=== PATIENT | female | born 1950 | race Caucasian/White ===

== ENCOUNTER 2022-06-29 09:00 | Outpatient (RCR) | payer MEDICARE, BC, SELFPAY ==
--- NOTE | 2022-04-17 11:55 | PT.OPEX ---
PT [facility] Eval PT [facility] Outpatient Eval Start: 04/17/22 07:13 Freq: Status: Active Protocol: Document 04/17/22 07:13 JAZMIN (Rec: 04/17/22 10:14 JAZMIN [id number]) E-Signed By Massiel Merino, PT Physical Therapy Outpatient Evaluation Insurance Information Recert Due Date 07/10/22 Insurance Name Medicare B,Other; See Comments Insurance Information/Comments [employer] [place] Medical Diagnosis B knee and hip pain Treating Diagnosis B knee pain, B hip pain, limited B hip ROM, impaired balance, impaired proximal hip strength, impaired quad strength, impaired gait Referring MD Young Subjective Subjective Patient presents to PT with primary complaint of chronic B hip and knee pain with initial onset about 2 years with gradual onset. She notes pain is mainly lateral R hip and down to lateral R knee however L LE is painful as well. She feels weak and unsure how to strengthening knees/hips. Exercises at home at this time focus on upper body strengthening. Has had previous injections in knees which have helped. Has done some biking on her [employer] but not very consistent with use. She is able to walk about 20 minutes prior to pain exacerbation. Having difficulty getting in/out of the car, in/out of shower, squatting, sleeping through the night, donning/doffing shoes and socks. She denies any recent falls d/t condition . Goals are to improve pain with walking, standing, and functional activities listed above as well as generalized LE strength. 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) Pain Comments 6/10 worst R 4/10 worst L Date of Last Physician Visit 03/02/22 Current Work Status Retired Precautions Treatment Precautions/Contraindications Frontal lobe seizures: treated with Lorazepam Objective Other/Pertinent Objective Gait: upright posture, limited terminal hip extension B SL balance: -L 12 sec, no pain and neutral pelvis -R 7 sec, lateral R hip pain with trendelenburg stance LE ROM (R/L): -Hip Ext: 5/5 -Hip Flx: 115/115-end range restriction however denies pinching -Hip ER: 45/45 -Hip IR: 15/15 -Knee Flx: 122/125 -Knee Ext: 0/0 LE Strength (R/L): -Knee Ext: R: 4/5, L: 4/5 -Knee Flex: R: 5/5, L: 5/5 -Hip Abd: R: 3+/5, L: 4-/5 -Hip Ext: R: 3+/5, L: 4-/5 -Hip Flx: R: 4/5, L: 4/5 Patellar mobility and positioning -R hypomobile medial -L good mobility patellar tilt Chet test: -R + -L - Increased tone R TFL/ITB Functional Test Performed & Score LEFS: 50/80 Assessment Assessment/Impression Patient is a 71 year old female presenting to physical therapy for evaluation and treatment of B hip and knee pain. Patient presents with B knee pain, B hip pain, limited B hip ROM, impaired balance, impaired proximal hip strength , impaired quad strength, impaired gait. These impairments are limiting the patients ability to getting in /out of the car, in/out of shower, squatting, sleeping through the night, donning/ doffing shoes and socks, walking >20 minutes. Patient appears motivated to participate in PT and presents with good prognosis to improve mobility, strength, proprioception and return to functional activities with skilled physical therapy intervention. Primary Functional Limitations getting in/out of the car, in/ out of shower, squatting, sleeping through the night, donning/doffing shoes and socks, walking >20 minutes Plan of Care Rehabilitation Potential Good Physical Therapy Goals In 6 weeks (05/29/22) Patient will demonstrate full PROM B hips without end range pain/pinch in order to don/ doff socks and shoes. Patient is able to sleep with waking 0-1 times per week due to pain. Patient will demonstrate desired glut and TA activation without cuing in order to progress to more functional activities, such as squats Pt will be able to walk >30 minutes with <4/10 pain In 12 weeks (07/10/22) Pt will exhibit 9 pt improvement in LEFS Outcome measure to demonstrate functional improvement and progress towards goals. Pt will be able to walk >45 minutes with <2/10 pain Pt will report <2/10 hip and knee pain with ADLs including getting in/out of car and shower Treatment Plan/Direct Interventions Gait Training,Ice/Cold/ Vasopneumatic,Joint Mobilization,Manual Therapy, Neuromuscular Re-ed,Self-Care/ Home Management,Therapeutic Activities,Therapeutic Exercises Frequency/Duration 1x/wk for 6 weeks with additional 4 session prn based on progress Patient Will Be Discharged From Therapy Completion of LTG(s), Independent w/HEP, Independently Progressing Evaluation Billing Untimed Code Treatment Minutes 24 Complexity Low Certification Information Initial Certification Date 04/17/22 Ending Certification Date 07/10/22
== END 2022-06-29 09:59 | disposition home or self-care (01) ==
PROVIDERS: PCP Family Medicine; Visit Provider Family Medicine
DX: M25.561 Pain in right knee (principal); Z51.89 Encounter for other specified aftercare
CPT/HCPCS: 97110; 97161

== ENCOUNTER 2022-07-09 18:51 | Emergency (ER) | payer MEDICARE, BC, SELFPAY ==
[2022-07-09 19:10] VITALS: BP 137/91; PULSE 74; RESP 18; TEMP 36.3; O2SAT 99; BMI 27.3
--- NOTE | 2022-07-09 19:45 | ED_ITS ---
HPI - General Adult General Chief complaint: Skin/Abscess/Foreign Body Stated complaint: RASH SPREADING FROM ARMPITS DOWN THROUGH LEGS Time Seen by Provider: 07/09/22 19:26 History of Present Illness HPI narrative: This patient comes in with a generalized pruritic maculopapular rash. She states that these symptoms have been present since mid afternoon today, about 6 hours ago. She is not on any new medicines but states that her lamotrigine was increased from 100 mg twice daily to 150 mg twice daily. She does not know of any other exposures. She does not report any symptoms of anaphylaxis or angioedema. Related Data Home Medications Medication Instructions Recorded Confirmed lamotrigine 100 mg tablet 150 mg PO BID 06/07/22 07/09/22 levetiracetam 500 mg 500 mg PO QDAY 06/07/22 07/09/22 tablet,extended release 24 hr omeprazole 20 mg capsule,delayed 20 mg PO QDAY 06/07/22 07/09/22 release Previous Rx's Medication Instructions Recorded lorazepam 0.5 mg tablet 0.5 mg PO QID #120 tabs 06/19/22 methylprednisolone 4 mg tablets in See Rx Instructions PO .COMPLEX 07/09/22 a dose pack (Medrol (Ari)) #21 ea triamcinolone acetonide 0.1 % 1 applic topical BID #80 grams 07/09/22 topical cream Allergies Allergy/AdvReac Type Severity Reaction Status Date / Time amoxicillin [From Augmentin] Allergy Mild Unknown Verified 06/07/22 14:43 clavulanic acid Allergy Mild Unknown Verified 06/07/22 14:43 [From Augmentin] Review of Systems Status of ROS: Reports: 10 or more systems reviewed and unremarkable except as noted in History and below Narrative: Constitutional: No fevers, no weight gain or loss. Eyes: No discharge. No vision changes. HENT: No congestion, no sore throat, no ear pain. Cardiovascular: No chest pain, no palpitations. Respiratory: No shortness of breath, no wheezes, no cough. Gastrointestinal: No abdominal pain, no vomiting, no diarrhea. Genitourinary: No dysuria, no hematuria. Musculoskeletal: Normal range of motion. Skin: Generalized maculopapular rash on trunk and extremities with pruritus. Neurological: No dizziness, weakness, sensory change, speech change. Endo/Heme/Allergies: No bruising or bleeding. No polydipsia. Pysch: no suicidality, no anxiety, no insomnia. All other systems reviewed and are negative. [facility] Medical History (Updated 07/09/22 @ 19:50 by Rommel Avery MD) Chronic gastritis Focal seizure (2018) Gastroesophageal reflux disease (03/24/10) Night terrors, adult Olfactory hallucinations Polyp of colon Vasomotor rhinitis (04/07/13) Surgical History (Updated 06/07/22 @ 07:07 by Rosie Young MD) H/O hand surgery (~2014) History of cholecystectomy (2000) History of colonoscopy (2018) History of hysterectomy (1980) Family History (Updated 06/07/22 @ 07:09 by Rosie Young MD) Mother Stroke, Onset Age: 90 Son Diabetes Father Colon cancer, Onset Age: 62 Social History (Updated 06/07/22 @ 07:09 by Rosie Young MD) Narrative: 2 Children 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 HEENT: Normocephalic, atraumatic. Neck: Normal range of motion. Nontender. Supple. Heart: Regular. No murmurs. Normal rate. Intact distal pulses. Lungs: Clear to auscultation. No chest discomfort. No wheezes, rhonchi, or rales. Abdomen: Normal bowel sounds. Nontender. No rebound tenderness. Genitalia: Deferred. Back: No midline tenderness. Normal range of motion. Extremities: Normal range of motion. No injury. Skin: Intact Warm. No erythema or pallor. Maculopapular rash on all extremities and the trunk. Neurologic: No altered sensation. No weakness. Alert and oriented. Psychiatric: No suicidality. No anxiety or depression. No insomnia. Nursing notes and vitals signs are reviewed. Const: Vital Signs, click to edit/add: Vital Signs - 24 hr 07/09/22 19:10 Temperature 97.4 F L Pulse Rate [Right Pulse Oximeter] 74 Respiratory Rate 18 Blood Pressure [Ri ght Upper Arm] 137/91 H Pulse Oximetry 99 Oxygen Delivery Me thod Room Air Course Vital Signs Vital signs: Initial Vital Signs Temperature 97.4 F L 07/09/22 19:10 Temperature Source Temporal Artery Scan 07/09/22 19:10 Pulse Rate 74 07/09/22 19:10 Respiratory Rate 18 07/09/22 19:10 Blood Pressure 137/91 H 07/09/22 19:10 Blood Pressure Mean 106 07/09/22 19:10 Blood Pressure Position Sitting 07/09/22 19:10 Pulse Oximetry 99 07/09/22 19:10 Oxygen Delivery Method 07/09/22 19:10 Vital Signs Temperature 97.4 F L 07/09/22 19:10 Pulse Rate 74 07/09/22 19:10 Respiratory Rate 18 07/09/22 19:10 Blood Pressure 137/91 H 07/09/22 19:10 Pulse Oximetry 99 07/09/22 19:10 Oxygen Delivery Method 07/09/22 19:10 Temperature 97.4 F L 07/09/22 19:10 Pulse Rate 74 07/09/22 19:10 Respiratory Rate 18 07/09/22 19:10 Blood Pressure 137/91 H 07/09/22 19:10 Pulse Oximetry 99 07/09/22 19:10 Oxygen Delivery Method 07/09/22 19:10 Medical Decision Making MDM Narrative Medical decision making narrative: It is uncertain what the specific trigger is for this generalized rash. It seems unlikely that it is medication related as she has been taking lamotrigine for about 6 months and had an increase in the dose only about a week ago. Perhaps if it was a new prescription from a different senior java software engineer there could be some allergen in the binder of the medicine that is triggering her symptoms. In any event she is not showing signs of angioedema or anaphylaxis. She did receive an oral dose of dexamethasone 10 mg. I provided prescriptions for Medrol Dosepak and triamcinolone cream. I advised her to use Kate a also for further benefit. Instructed her to contact her primary physician for recommendations regarding her regular medicines. Discharge Plan Discharge Clinical Impression: Urticaria Patient Disposition: Home, Self-Care Condition: Unchanged Additional Instructions: Take medication as prescribed. Use Kate as directed also. Follow up with MD for ongoing medication management. Return if worsening. Prescriptions: New methylprednisolone [Medrol (Ari)] 4 mg tablets,dose pack See Rx Instructions .ROUTE .COMPLEX Qty: 21 0RF Rx Instructions: orally per package directions triamcinolone acetonide 0.1 % cream 1 applic topical BID Qty: 80 0RF No Action lamotrigine 100 mg tablet 150 mg PO BID Label Comments: TAKE 1 TABLET TWICE DAILY AFTER COMPLETING 25 MG RX omeprazole 20 mg capsule,delayed release(DR/EC) 20 mg PO QDAY Label Comments: TAKE 1 CAPSULE BY MOUTH DAILY levetiracetam 500 mg tablet extended release 24 hr 500 mg PO QDAY Label Comments: TAKE 4 TABLETS BY MOUTH DAILY lorazepam 0.5 mg tablet 0.5 mg PO QID Qty: 120 0RF Follow Up/Referrals: Rosie Young MD [Primary Care Provider] - Stand Alone Forms: [email or web address] Info Instructions
[2022-07-09] MEDS: dexAMETHasone 10 MG/ML inj PO (20:01)
[2022-07-09 20:37] VITALS: BP 137/91; PULSE 74; RESP 18; TEMP 36.3
== END 2022-07-09 20:10 | disposition home or self-care (01) ==
PROVIDERS: Emergency Provider Emergency Medicine Emergency Medical Services; PCP Family Medicine
DX: L50.9 Urticaria, unspecified (principal)
CPT/HCPCS: 99283; 99284; J1100

== ENCOUNTER 2022-10-15 14:23 | Outpatient (CLI) | payer MEDICARE, BC, SELFPAY | END 2022-10-15 14:24 | disposition home or self-care (01) | LOC: AMB 10-17 09:45 | PROVIDERS: PCP Family Medicine; Visit Provider Emergency Medicine | DX: G40.909 Epilepsy, unspecified, not intractable, without status epilepticus (principal) | CPT/HCPCS: A0425; A0427 ==

== ENCOUNTER 2022-10-15 14:55 | Emergency (ER) | payer MEDICARE, BC, SELFPAY ==
[2022-10-15 14:57] VITALS: BP 143/71; PULSE 77; RESP 20; TEMP 36.9; O2SAT 99
--- NOTE | 2022-10-15 15:08 | ED_ITS ---
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 Patient notes that the chlorine from swimming this morning seemed to spark on ongoing seizure. Patient notes that she is still experiencing waves of smelling the chlorine long after she departed the swimming pool. She notes that she had gone home and in addition to her normal lorazepam dosing of 0.5 mg q.i.d. she also took an additional 1.5 mg. This was done in 0.5 mg dosages. Unfortunately patient continue leave feels the waves coming over her. She was afraid to stay at home as she was alone and because of the anxiety that this causes her and came to the emergency room. The patient notes that recently they increased her to look os amide or Vimpat and decreased her Keppra. She would like to get off the Keppra because she states she feels like it makes her worse. She is a patient at [facility]. She denies any recent head trauma but states 3 years ago had head trauma and this is why she is experiencing the seizures. She notes that she has had an EEG at [facility] that showed seizures. I do query her on Ativan scheduled as this is usually not used as a seizure preventative and she states that she initially started on it as a p.r.n. medication but now takes it scheduled and states that she does much worse if she is not on it. Related Data Home Medications Medication Instructions Recorded Confirmed levetiracetam 500 mg 500 mg PO QDAY 06/07/22 10/15/22 tablet,extended release 24 hr omeprazole 20 mg capsule,delayed 20 mg PO QDAY 06/07/22 10/15/22 release lacosamide 50 mg tablet 50 mg PO BID 10/15/22 10/15/22 Previous Rx's Medication Instructions Recorded lorazepam 0.5 mg tablet 0.5 mg PO QID #120 tabs 06/19/22 Allergies Allergy/AdvReac Type Severity Reaction Status Date / Time amoxicillin [From Augmentin] Allergy Mild Unknown Verified 10/15/22 15:04 clavulanic acid Allergy Mild Unknown Verified 10/15/22 15:04 [From Augmentin] lamotrigine Allergy Mild Rash Verified 10/15/22 15:04 prednisone Allergy Mild Rash Verified 10/15/22 15:04 Review of Systems Status of ROS: Reports: 10 or more systems reviewed and unremarkable except as noted in History and below Const: Denies: fever or chills Eyes: Denies: change in vision ENMT: Denies: throat pain Cardio: Denies: chest pain Resp: Denies: cough PFSH PFSH Medical History Chronic gastritis Focal seizure (2018) Gastroesophageal reflux disease (03/24/10) Night terrors, adult Olfactory hallucinations Polyp of colon Vasomotor rhinitis (04/07/13) Surgical History H/O hand surgery (~2014) History of cholecystectomy (2000) History of colonoscopy (2018) History of hysterectomy (1980) Family History Mother Stroke, Onset Age: 90 Son Diabetes Father Colon cancer, Onset Age: 62 Social History Narrative: 2 Children 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 Able to provide in significant detail her current medical condition. Eyes are clear and EOM is full. No facial swelling. Oral cavity with moist mucous membranes. Neck is supple. No lymphadenopathy. Heart with regular rate and rhythm and lungs are clear bilaterally. Abdomen soft. Lower extremities without rash or unusual edema. Const: Vital Signs, click to edit/add: Vital Signs - 24 hr 10/15/22 14:57 10/15/22 15:31 Temperature 98.4 F Pulse Rate [Right Pulse Oximeter] 77 82 Respiratory Rate 20 14 Blood Pressure [Le ft Upper Arm] 143/71 H 143/71 H Pulse Oximetry 99 98 Oxygen Delivery Me thod Room Air Room Air Documenting provider has reviewed patient's vital signs: yes Course Course Hospital Course: Patient noted to be holding a Kleenex to her nose for extended periods. Was able to get her a nose clamp typically used for epistaxis in the its this seemed to help as well. I did speak with [facility] in regards to this patient and it was suggested at that time to give patient 3 g IV bolus of Keppra and not use benzodiazepines as treatment for the seizure. Patient was very upset about this and states that she has been trying to get off Keppra and thus I did call once again and was able to speak to the epilepsy department at [facility]. Dr. Logan has seen the patient in the past. He notes that we will need to increase Keppra to 500 mg t.i.d. which she takes at night in 2 hour increments. He also suggested increasing Lacosamide my to 150 mg b.i.d. for a total of 300 mg. Patient had previously been on 100 mg-50 mg-100 mg. She is also requesting her Ativan 0.5 mg which she should have had at 1600 hours. Vital Signs Vital signs: Initial Vital Signs Temperature 98.4 F 10/15/22 14:57 Temperature Source Temporal Artery Scan 10/15/22 14:57 Pulse Rate 77 10/15/22 14:57 Pulse Rhythm 10/15/22 14:57 Respiratory Rate 20 10/15/22 14:57 Blood Pressure 143/71 H 10/15/22 14:57 Blood Pressure Mean 95 10/15/22 14:57 Blood Pressure Position Supine 10/15/22 14:57 Pulse Oximetry 99 10/15/22 14:57 Oxygen Delivery Method 10/15/22 14:57 Vital Signs Temperature 98.4 F 10/15/22 14:57 Pulse Rate 77 10/15/22 14:57 Respiratory Rate 20 10/15/22 14:57 Blood Pressure 143/71 H 10/15/22 14:57 Pulse Oximetry 99 10/15/22 14:57 Oxygen Delivery Method 10/15/22 14:57 Temperature 98.4 F 10/15/22 14:57 Pulse Rate 82 10/15/22 15:31 Respiratory Rate 14 10/15/22 15:31 Blood Pressure 143/71 H 10/15/22 15:31 Pulse Oximetry 98 10/15/22 15:31 Oxygen Delivery Method 10/15/22 15:31 MDM - Seizure MDM Narrative Medical decision making narrative: 1.Olfactory seizure- patient noted to have taken an additional 1.5 mg of Ativan at home but had ongoing seizure and did not want to be home alone because of increased anxiety. We did discuss with [facility] course of action which did include Keppra bolus and patient was not pleased with that. Thus I was able to talk to epilepsy specialist who noted that we should increase Keppra to 500 mg t.i.d. (from 500 mg b.i.d.) and Vimpat to 150 mg b.i.d. (current dosing is 100 mg, 50 mg, 100 mg during the course of an evening) The plan had to been to give Vimpat 150 mg now and for patient to continue 150 mg b.i.d. starting tomorrow. She, however, while initially agreeing decided against it once nursing staff arrived with medications. She notes that she has been taking that medication at home at night. She has been dividing it up over approximately 2 hour increments. At this time she states she is feeling better and if she wants to take this medication at home I do not have a problem with that. The plan is for her to increase her Vimpat and temporarily increase her Keppra to 500 mg t.i.d. or 1500 mg this evening. Ultimately, she is to follow up with [facility] so that they can start decreasing her Keppra. In the end patient only received Ativan 0.5 mg p.o. at her 1600 hours dosing. I did talk to her about this as she had previously had Ativan in but she was stating that she must take this on time or she will get much worse. She is alert and oriented and thus we did give her 1 dose. 2. Anxiety-I did speak with patient about psychological affects of chronic medical problems. I do think that there is significant anxiety at play and trying to discern symptoms of anxiety verses sequela of seizure is very challenging. Patient states that she has good psychological support from her her sister. Later she does tell me that her neurologist Dr. Choe had indicated the possibility of psychiatric consult if they are unable to get these seizures under control. I have significant concerns about the Ativan being used in this particular manner to manage seizures. I do think it would be important to taper off the Ativan. I do think this is going to take a specialist and very slow taper however. 3. Disposition-patient now is able to go home. She thinks she is feeling better. Her was in [place] but is now coming back from that area and will be able to pick her up. She will not be home alone. She is to return to the emergency room as needed. Medical Records Attestation: I reviewed the patient's medical records. Discharge Plan Discharge Clinical Impression: Olfactory seizure Patient Disposition: Home, Self-Care Condition: Improved Additional Instructions: Increase Keppra to 500 mg 3 times daily or 1500 mg in 24 hours. This was your previous does which was recently decreased. [facility] will need to assist you with decreasing this dose once again in the future. Increase Lacosamide to 150 mg twice daily for a total of 300 mg in 24 hours. Follow-up with [facility]. Return to the emergency room as needed. Prescriptions: No Action omeprazole 20 mg capsule,delayed release(DR/EC) 20 mg PO QDAY Label Comments: TAKE 1 CAPSULE BY MOUTH DAILY levetiracetam 500 mg tablet extended release 24 hr 500 mg PO QDAY Label Comments: TAKE 4 TABLETS BY MOUTH DAILY lacosamide 50 mg tablet 50 mg PO BID lorazepam 0.5 mg tablet 0.5 mg PO QID Qty: 120 0RF Follow Up/Referrals: Rosie Young MD [Primary Care Provider] - Stand Alone Forms: [employer] Info Instructions
[2022-10-15 15:31] VITALS: BP 143/71; PULSE 82; RESP 14; O2SAT 98
[2022-10-15] MEDS: LORazepam 0.5 MG TABLET PO (17:20)
--- NOTE | 2022-10-15 17:33 | ED.NURSE ---
Patient manages medications at home. [place] was consulted by Physician for best management; ultimately Lacosamide and Lorazepam ordered. Pt refused administration of Lacosamide that pharmacy had sent but accepted Lorazepam.
== END 2022-10-15 17:47 | disposition home or self-care (01) ==
PROVIDERS: Emergency Provider Family Medicine; PCP Family Medicine
DX: G40.89 Other seizures (principal)
CPT/HCPCS: 94761; 99283; 99284; A9270

== ENCOUNTER 2022-11-19 13:35 | Emergency (ER) | payer MEDICARE, BC, SELFPAY ==
[2022-11-19 13:46] VITALS: BP 105/65; PULSE 88; RESP 18; TEMP 36.8; O2SAT 96; BMI 25.5
[2022-11-19 15:38] VITALS: BP 133/60; PULSE 76; RESP 16; TEMP 36.8; O2SAT 96
[2022-11-19] MEDS: LORazepam 1 MG TABLET PO (15:50)
[2022-11-19 16:34] VITALS: BP 129/46; PULSE 78; RESP 16; O2SAT 96
--- NOTE | 2022-11-19 16:37 | ED.GENADULT ---
HPI - General Adult General Chief complaint: Seizure Stated complaint: Seizure Time Seen by Provider: 11/19/22 15:20 History of Present Illness HPI narrative: This 71-year-old female comes in with report of partial seizures. She has a history of this and states that it is a wave that comes over her during which time she has altered some sense of smell and taste. She does not report tonic clonic activity or partial tremors. She is taking Keppra 1500 mg in the evening. She is also taking lacosamide and Ativan. She did take an extra 1500 mg of Keppra this morning and arrives here with improvement of her symptoms. She does arrive with normal vital signs and is not showing any sign of seizure activity. She has been evaluated and is being managed by a neurologist. She has had CT scan and MRI and lab test done without any real findings to verify her symptoms. She feels that the lacosamide is causing some adverse effects as the dosing was increased recently. She is connected with her neurologist in this regard who is weaning her off of this medicine and starting Depakote. Related Data Home Medications Medication Instructions Recorded Confirmed levetiracetam 500 mg 500 mg PO QDAY 06/07/22 11/19/22 tablet,extended release 24 hr omeprazole 20 mg capsule,delayed 20 mg PO QDAY 06/07/22 11/19/22 release lacosamide 50 mg tablet 50 mg PO BID 10/15/22 11/19/22 Previous Rx's Medication Instructions Recorded lorazepam 0.5 mg tablet 0.5 mg PO QID #120 tabs 06/19/22 Allergies Allergy/AdvReac Type Severity Reaction Status Date / Time amoxicillin [From Augmentin] Allergy Mild Unknown Verified 10/15/22 15:04 clavulanic acid Allergy Mild Unknown Verified 10/15/22 15:04 [From Augmentin] lamotrigine Allergy Mild Rash Verified 10/15/22 15:04 prednisone Allergy Mild Rash Verified 10/15/22 15:04 Review of Systems Status of ROS: Reports: 10 or more systems reviewed and unremarkable except as noted in History and below Narrative: Constitutional: No fevers, no weight gain or loss. Eyes: No discharge. No vision changes. HENT: No congestion, no sore throat, no ear pain. Cardiovascular: No chest pain, no palpitations. Respiratory: No shortness of breath, no wheezes, no cough. Gastrointestinal: No abdominal pain, no vomiting, no diarrhea. Genitourinary: No dysuria, no hematuria. Musculoskeletal: Normal range of motion. Skin: No rashes, no pruritis. Neurological: No dizziness, weakness, speech change. She reports episodes of olfactory and taste changes. Endo/Heme/Allergies: No bruising or bleeding. No polydipsia. Pysch: no suicidality, no anxiety, no insomnia. All other systems reviewed and are negative. [facility] Medical History Chronic gastritis Focal seizure (2019) Gastroesophageal reflux disease (03/24/10) Night terrors, adult Olfactory hallucinations Polyp of colon Vasomotor rhinitis (04/07/13) Surgical History H/O hand surgery (~2014) History of cholecystectomy (2000) History of colonoscopy (2018) History of hysterectomy (1980) Family History Mother Stroke, Onset Age: 90 Son Diabetes Father Colon cancer, Onset Age: 62 Social History Narrative: 2 Children Retiree: researcher from [place] Non-smoker Exercises regularly -pushups, walking, biking Social drinker 1/day Smoking Status: Never smoker Do you use any of these nicotine containing products: None Second hand tobacco smoke exposure: No How often do you have a drink containing alcohol: never AUDIT-C Alcohol total score: 0 Non-prescribed substance use: denies use service: No Exam Narrative: Exam Narrative: Constitutional: Well-developed, well-nourished, no acute distress. HEENT: Normocephalic, atraumatic. Neck: Normal range of motion. Nontender. Supple. Heart: Regular. No murmurs. Normal rate. Intact distal pulses. Lungs: Clear to auscultation. No chest discomfort. No wheezes, rhonchi, or rales. Abdomen: Normal bowel sounds. Nontender. No rebound tenderness. Genitalia: Deferred. Back: No midline tenderness. Normal range of motion. Extremities: Normal range of motion. No injury. Skin: Intact. No rash. Warm. No erythema or pallor. Neurologic: No altered sensation. No weakness. Alert and oriented. Psychiatric: No suicidality. No anxiety or depression. No insomnia. Nursing notes and vitals signs are reviewed. Const: Vital Signs, click to edit/add: Vital Signs - 24 hr 11/19/22 13:46 11/19/22 15:38 11/19/22 16:34 Temperature 98.2 F 98.2 F Pulse Rate [Pulse Oximeter] 88 76 78 Respiratory Rate 18 16 16 [facility] 105/65 133/60 129/46 L Pulse Oximetry 96 96 96 Oxygen Delivery Me thod Room Air Room Air Room Air Course Vital Signs Vital signs: Initial Vital Signs Temperature 98.2 F 11/19/22 13:46 Temperature Source Temporal Artery Scan 11/19/22 13:46 Pulse Rate 88 11/19/22 13:46 Respiratory Rate 18 11/19/22 13:46 Blood Pressure 105/65 11/19/22 13:46 Blood Pressure Mean 78 11/19/22 13:46 Pulse Oximetry 96 11/19/22 13:46 Oxygen Delivery Method 11/19/22 13:46 Vital Signs Temperature 98.2 F 11/19/22 13:46 Pulse Rate 88 11/19/22 13:46 Respiratory Rate 18 11/19/22 13:46 Blood Pressure 105/65 11/19/22 13:46 Pulse Oximetry 96 11/19/22 13:46 Oxygen Delivery Method 11/19/22 13:46 Temperature 98.2 F 11/19/22 15:38 Pulse Rate 78 11/19/22 16:34 Respiratory Rate 16 11/19/22 16:34 Blood Pressure 129/46 L 11/19/22 16:34 Pulse Oximetry 96 11/19/22 16:34 Oxygen Delivery Method 11/19/22 16:34 Medical Decision Making MDM Narrative Medical decision making narrative: This patient comes in reporting recurrent history of which she calls seizures. It is episodes of feeling a wave of discomfort and change in her sense of smell and taste. She does not report any involuntary movements typical of a partial seizure. She did take extra medicine prior to arrival and seems to improved. She did receive an oral dose of Ativan 1 mg here. She was observed for a couple hours and continues to feel normal. She is okay to be discharged home and I encouraged continuing the plan as outlined by her primary physician. Discharge Plan Discharge Clinical Impression: Olfactory hallucinations Patient Disposition: Home, Self-Care Condition: Improved Additional Instructions: Continue current plans. Okay to take extra Keppra and Ativan as discussed and needed for recurrent symptoms or breakthrough symptoms. Prescriptions: No Action omeprazole 20 mg capsule,delayed release(DR/EC) 20 mg PO QDAY Label Comments: TAKE 1 CAPSULE BY MOUTH DAILY levetiracetam 500 mg tablet extended release 24 hr 500 mg PO QDAY Label Comments: TAKE 4 TABLETS BY MOUTH DAILY lacosamide 50 mg tablet 50 mg PO BID lorazepam 0.5 mg tablet 0.5 mg PO QID Qty: 120 0RF Follow Up/Referrals: Rosie Young MD [Primary Care Provider] - Stand Alone Forms: [employer] Info Instructions
[2022-11-19 17:00] VITALS: BP 113/73; PULSE 78; RESP 16; TEMP 36.7; O2SAT 92
--- NOTE | 2022-11-19 17:14 | PC.NURSE ---
discharge pt was pleasant. is loving and caring. all meds list are printed out. she got 1 mg po ativan. she was discharge. all questions answered. she got a w/c ride to car.
[2022-11-19 17:15] VITALS: BP 113/76; PULSE 78; PULSE 92; RESP 16; TEMP 36.7
== END 2022-11-19 17:10 | disposition home or self-care (01) ==
PROVIDERS: Emergency Provider Emergency Medicine Emergency Medical Services; PCP Family Medicine
DX: R44.2 Other hallucinations (principal)
CPT/HCPCS: 99283; 99284; A9270

== ENCOUNTER 2022-12-12 11:28 | Outpatient (CLI) | payer MEDICARE, BC, SELFPAY ==
[2022-12-12] MEDS: TETRACAINE 0.5% OPHTH 1 DROP EYE-BOTH ×3 (11:43→12:04)
[2022-12-12] MEDS: BRIMONIDINE TARTRATE 0.2% OPHTH 1 DROP EYE-BOTH ×2 (11:46→12:23)
[2022-12-12 11:55] VITALS: BP 95/52; PULSE 60; RESP 18; O2SAT 98
--- NOTE | 2022-12-12 12:53 | P.OPTPRC_ITS ---
Procedure Note Date of procedure: 12/12/22 Will [facility] bill your pro fee for this procedure?: Yes Procedure Description: SURGEON: Mirella Hill MD PREOPERATIVE DIAGNOSIS: Posterior capsular opacity, right and left eye POSTOPERATIVE DIAGNOSIS: Posterior capsular opacity, right and left eye PROCEDURE: YAG laser capsulotomy, both eyes ANESTHESIA: Topical. ESTIMATED BLOOD LOSS: None PATHOLOGY SPECIMEN: None COMPLICATIONS: None INDICATIONS: See consult note for details. The risks, benefits and alternatives of the procedure were explained to the patient, who elected to proceed and signed informed consent to do so. PROCEDURE: The patient was brought to the pre-holding area where the right and left eyes were identified as the operative eyes. I placed my initials above the eyes. The following was given in both eyes: The patient received 2 sets of 1 drop of 0.5% tetracaine and 1 drop of 1% tropicamide. They also received 1 drop of 0.2% brimonidine. They received 1 drop of 0.5% tetracaine immediately prior to bringing them back for the procedure. The patient was then brought to the procedure room where the right and left eyes were again identified as the operative eyes. A YAG Brady capsulotomy lens was placed on the right eye. The laser was administered using a total number of 20 shots with an energy of 2.4 mJ per shot for a total energy of 48 mJ. The patient tolerated the procedure well. A YAG Brady capsulotomy lens was placed on the left eye. The laser was administered using a total number of 9 shots with an energy of 2.4 mJ per shot for a total energy of 22 mJ. The patient tolerated the procedure well. DISPOSITION: The patient was taken back to the pre-holding area and given 1 drop of 0.2% brimonidine in both eyes. They were discharged to home in stable condition. The patient was [facility] call [facility] any sudden change, including dramatic loss of vision, severe pain in the eye or eyebrow region, nausea, or vomiting. The patient was instructed to use the 0.2% brimonidine 1 drop 2 times a day in both eyes for 1 week. The patient will follow up in the clinic in 1-2 weeks. Surgeon: Mirella Hill MD
== END 2022-12-12 12:29 | disposition home or self-care (01) ==
LOC: EYE PRC 11:30
PROVIDERS: PCP Family Medicine; Visit Provider Ophthalmology
DX: H26.9 Unspecified cataract (principal)
CPT/HCPCS: 66821; A9270

== ENCOUNTER 2023-03-12 13:06 | Outpatient (CLI) | payer MEDICARE, BC, SELFPAY ==
--- NOTE | 2023-03-12 13:20 | CRLHL7_ITS ---
For Patients: As a result of the Century Cures Act, medical imaging exams and procedure reports are released immediately into your electronic medical record. You may view this report before your referring provider. If you have questions, please contact your health care provider. BILATERAL SCREENING MAMMOGRAM WITH COMPUTER-AIDED DETECTION AND TOMOSYNTHESIS TECHNIQUE: CC and MLO views were obtained. These mammographic images have been obtained using full-field digital technique. These mammographic images were interpreted with the benefit of computer-aided detection. Breast Tomosynthesis was used in this interpretation. COMPARISON FILM: 03/09/22, 01/17/21, 12/22/19. FINDINGS: The breasts are almost entirely fatty IMPRESSION: There is no radiographic evidence for malignancy. ASSESSMENT: BI-RADS Category 1: Negative RECOMMENDATION: Routine screening mammogram in 1 year. A lay language report of this examination will be provided to the patient. Kevin Meneses M.D. Diagnostic Radiologist [email or web address] CHAD/Dictated by: Kevin Meneses MD @ 03/13/2023 12:47:00 PM (Electronically Signed)
== END 2023-03-12 13:07 | disposition home or self-care (01) ==
LOC: MAMMO 13:07
PROVIDERS: PCP Family Medicine; Visit Provider Family Medicine
DX: Z12.31 Encounter for screening mammogram for malignant neoplasm of breast (principal)
CPT/HCPCS: 77063; 77067

== ENCOUNTER 2023-05-10 15:40 | Outpatient (CLI) | payer MEDICARE, BC, SELFPAY | END 2023-05-10 15:41 | disposition home or self-care (01) | PROVIDERS: PCP Family Medicine; Visit Provider Family Medicine | DX: Z00.00 Encounter for general adult medical examination without abnormal findings (principal); E78.5 Hyperlipidemia, unspecified; R63.4 Abnormal weight loss; R53.83 Other fatigue; R43.1 Parosmia; F41.9 Anxiety disorder, unspecified; Z13.21 Encounter for screening for nutritional disorder | CPT/HCPCS: 80053; 80061; 82306; 82607; 84439; 84443 ==

== ENCOUNTER 2023-06-12 13:11 | Outpatient (CLI) | payer MEDICARE, BC, SELFPAY ==
--- NOTE | 2023-06-12 13:30 | CRLHL7_ITS ---
For Patients: As a result of the Century Cures Act, medical imaging exams and procedure reports are released immediately into your electronic medical record. You may view this report before your referring provider. If you have questions, please contact your health care provider. DXA BONE MINERAL DENSITY STUDY Reason for exam: Asymptomatic menopausal state. Current height (in): 67. Weight (lb): 167. Menopause age: 52. Ethnicity: White. 1. Have you had a previous hip or vertebral fracture? No. 2. Have you had any fractures during your adult life which did not result from significant trauma (e.g., auto accident)? No. 3. Did either of your parents have a hip fracture? No. 4. Do you smoke? No. 5. Have you ever taken Glucocorticoids? No. 6. Do you have rheumatoid arthritis? No. 7. Do you have secondary osteoporosis? No. 8. Do you drink 3 or more alcoholic drinks per day? No. 9. Are you being treated for osteoporosis? No. 10. Have you ever taken any of the following medications: Actonel, Evista, Fosamax, Miacalcin, Reclast, Boniva, Forteo, HRT (i.e. estrogen/hormone therapy), Protelos, Prolia, Vitamin D, Calcium, other ??? please specify. ANSWER: No. 11. Do you have any of the following medical conditions: Anorexia or bulimia, asthma or emphysema, end stage renal disease, hyperparathyroidism, any seizure disorders, cancer, inflammatory bowel diseases, hysterectomy, other ??? please specify. ANSWER: Yes, hysterectomy. 12. What was your maximum height (inches)? 67. 13. Do you perform weight bearing exercise regularly? Yes. 14. Do you regularly consume dairy products? Yes. 15. Do you drink caffeinated beverages? Yes. 16. At what age did your period start? 11. 17. Are you premenopausal? No. 18. How many full term pregnancies have you had? 2. 19. Have you ever missed your period for more than 6 months in a row (not including or menopause)? No. TECHNIQUE: Bone mineral density study was performed using the [employer]. FINDINGS: The results of the study expressed as bone mineral density (BMD) are as follows: Lumbar spine L1 to L3: BMD: 1.085 g/cm2. T-score: 0.6. Z-score: 2.9. Neck Left: BMD: 0.824 g/cm2. T-score: -0.2. Z-score: 1.8. Right: BMD: 0.864 g/cm2. T-score: 0.1. Z-score: 2.2. Total Left: BMD: 0.895 g/cm2. T-score: -0.4. Z-score: 1.4. Right: BMD: 0.954 g/cm2. T-score: 0.1. Z-score: 1.9. IMPRESSION: Normal bone density. *Comparison exams done prior to 02/2020 were performed on different unit, [facility]. COMPARISON: Compared with scan of 12/11/2018, the bone mineral density has increased by 1.1 percent at the spine and decreased by 7.3 percent at the hip. Compared with scan of 05/20/2014, the bone mineral density has decreased by 3.0 percent at the spine and decreased by 2.7 percent at the hip. Kevin Meneses M.D. Diagnostic Radiologist [email or web address] CHAD/Dictated by: Kevin Meneses MD @ 06/13/2023 9:54:00 AM (Electronically Signed)
== END 2023-06-12 13:12 | disposition home or self-care (01) ==
LOC: RAD 13:12
PROVIDERS: PCP Family Medicine; Visit Provider Family Medicine
DX: Z78.0 Asymptomatic menopausal state (principal)
CPT/HCPCS: 77080

== ENCOUNTER 2024-03-24 07:43 | Outpatient (CLI) | payer MEDICARE, BC, SELFPAY ==
--- OUTSIDE RECORDS SUMMARY | 2024-03-24 07:46 | XMS_ITS ---
Author Organization [facility] Address [address] [place] [address] Care Team Providers Care Sweater Operator Name Role Phone Unavailable Unavailable Unavailable Surgery Details Not on file Complications Check Surgery Details section. Procedure Estimated Blood Loss Check Surgery Details section. Procedure Findings Check Surgery Details section. Procedure Specimens Taken Check Surgery Details section.
--- OUTSIDE RECORDS SUMMARY | 2024-03-24 07:46 | XMS_ITS | Referral Summary ---
Author Organization [facility] Address [address] [place] [address] Care Team Providers Care Color Strainer Name Role Phone Elsewhere, Pcp Primary Care Provider Unavailabl e Source Comments Patient records contain information from all sites at [facility]. For routine questions regarding patient records, call [phone] during business hours, M-F 8:00 AM - 5:00 PM Central Time. Record requests for emergency care only can be directed to [phone] at any time.[facility] Allergies Active Allergy Reactions Criticality Noted Date Comments Amoxicillin Other (see comments) Low 10/15/2022 Amoxicillin-Pot Clavulanate Hives (Reselect Reaction) 09/15/2010 Clavulanic Acid Other (see comments) Low 10/15/2022 Rash, itching Lamotrigine Itching,Other (see comments),Rash Low 07/09/2022 Prednisone Rash Low 10/15/2022 Medications Medication Sig Dispensed Refills Start Date End Date Status omeprazole (PriLOSEC) [address] capsule Take 20 mg by mouth every morning before breakfast. 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 360 tablet 3 01/31/2023 Active LORazepam (ATIVAN) 0.5 mg tabletIndications:S eizure (HCC) Take 0.5 pill at 8:00 a.m. and 0.5 pill at 8:00 p.m. 135 tablet 3 03/07/2023 Active Additional Information Patient taking differently: 0.1275 mg oral Daily, Tapering, Reported on 06/24/2023 divalproex (DEPAKOTE ER) 250 mg 24 hr tabletIndications:Chanel martinez (HCC) Take two pills twice per day (two in the morning and two in the evening). 120 tablet 11 04/19/2023 Active Additional Information Patient taking differently: 2 times daily, One in the morning and two in the evening, Reported on 06/24/2023 Active Problems Patient Care Coordination No te Formatting of this note migh t be different from the original. 05/21/22 SVETLANA to family and friends signed for spouse Peter Manzano. 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 Humiliation, Afraid, Rape, and Kick questionnair e Answer Date Recorded Within the last year, have y ou been afraid of your partner or ex-partner? No 06/28/2022 Within the last year, have y ou been humiliated or emotionally abused in other ways by your partner or ex-partner? No Within the last year, have y ou been kicked, hit, slapped, or otherwise physically hurt by your partner or ex-partner? No 06/28/2022 Within the last year, have y ou been raped or forced to have any kind of sexual activity by your partner or ex-partner? No 06/28/2022 Social Connection and Isolat ion Panel [NHANES] Answer Date Recorded In a typical week, how many times do you talk on the phone with family, friends, or neighbors? More than three times a week 06/28/2022 How often do you get togethe r with friends or relatives? More than three times a week 06/28/2022 How often do you attend [facility] or quaker services? Never 06/28/2022 Do you belong to any clubs o r organizations such as roman catholic groups, unions, fraternal or athletic groups, or school groups? No 06/28/2022 How often do you attend meet ings of the clubs or organizations you belong to? Never 06/28/2022 Are you , , di vorced, , never , or living with a partner? 06/28/2022 AUDIT-C Answer Date Recorded Q1: How often do you have a drink containing alcohol? Monthly or less 06/28/2022 Q2: How many drinks containi ng alcohol do you have on a typical day when you are drinking? Patient does not drink Q3: How often do you have si x or more drinks on one occasion? Never 06/28/2022 Overall Financial Resource Strain (CARDIA) Answe r Date Recorded How hard is it for you to pa y for the very basics like food, housing, medical care, and heating? Not hard at all 08/11/2023 [facility] - Occupational Stress Questionnaire Answer Date Recorded Do you feel stress - tense, restless, nervous, or anxious, or unable to sleep at night because your mind is troubled all the time - these days? Only a little 06/28/2022 Exercise Vital Sign Answer Date Recorde d On average, how many days pe r week do you engage in moderate to strenuous exercise (like a brisk walk)? 3 days 08/11/2023 On average, how many minutes do you engage in exercise at this level? 30 min 08/11/2023 Hunger Vital Sign Answer Date Recorded Within the past 12 months, y ou worried that your food would run out before you got the money to buy more. Never true 08/11/20 23 Within the past 12 months, t he food you bought just didn't last and you didn't have money to get more. Never true 08/11/2023 PRAPARE - Transportation Answer Date Re corded In the past 12 months, has l ack of transportation kept you from medical appointments or from getting medications? No 07/31 In the past 12 months, has l ack of transportation kept you from meetings, work, or from getting things needed for daily living? No 08/11/2023 Nutrition Answer Date Recorded Nutrition: EVOO Fat Source Yes 08/11 On average, how many serving s of fruits and vegetables do you eat per day (serving size is equal to 1 cup or approximately the size of a tennis ball)? 0-2 08/11/2023 Dental Answer Date Recorded Dental: Regular Dentist Yes 06/28/20 Employment Answer Date Recorded Employment status Retired 08/11/2023 Housing Stability Answer Date Recorded What is your living situation today? I have a [facility] place to live 08/11/2023 Education Answer Date Recorded What is the highest level of school you have completed or the highest degree you have received? Doctorate 06/28/2022 Sex and Gender Information Value Date Recorded Sex Assigned at Female 06/28/2022 11:57 AM CDT Gender Identity Female 06/28/2022 11:57 AM CDT Sexual Orientation Straight 06/28/2022 11 :57 AM CDT Last Filed Vital Signs Vital Sign Reading Time Taken Comments Blood Pressure 104/47 09/06/2023 8:12 AM MANAGER ENGLISH Pulse 58 09/06/2023 8:12 AM MANAGER ENGLISH Temperature 36.5 ??C (97.7 ??F) 09/06/2023 8:12 AM CS T Respiratory Rate 10 09/06/2023 8:12 AM MANAGER ENGLISH Oxygen Saturation 94% 09/06/2023 8:12 AM MANAGER ENGLISH Inhaled Oxygen Concentration - - Weight 76.5 kg (168 lb 10.4 oz) 09/06/2023 7:03 AM MANAGER ENGLISH Height 170.2 cm (5' 7) 08/22/2022 10:1 0 AM MANAGER ENGLISH Body Mass Index 26.41 08/22/2022 10:10 AM MANAGER ENGLISH Plan of Treatment Not on file Advance Directives For more information, please contact: [phone] * Full Code (Latest Code Status on File) Date Activated Date Inactivated Comments 08/22/2022 9:31 AM 08/25/2022 2:14 PM Question Answer Comments Full Code: Discussed Care Teams Color Strainer Relationship Specialty Start Date End Date Elsewhere, Pcp PCP - General Internal Medicine 08/07/22
--- OUTSIDE RECORDS SUMMARY | 2024-03-24 07:46 | XMS_ITS | Clinical Summary ---
Author Organization [facility] Address [address] [place] [address] Care Team Providers Care Aircraft Avionics Technician Name Role Phone Elsewhere, Pcp Primary Care Provider Unavailabl e Source Comments Patient records contain information from all sites at [facility]. For routine questions regarding patient records, call [phone] during business hours, M-F 8:00 AM - 5:00 PM Central Time. Record requests for emergency care only can be directed to [phone] at any time.[facility] Allergies Active Allergy Reactions Criticality Noted Date [...] Status Epilepticus 08/22/2022 Abnormal Electroencephalogram Nonspecific 2021 Family History Medical History Relation Name Comments Transient ischemic attack Mother Gisel 90 yrs old Lymphoma Sister 1 Sonya Foster Diabetes Sister 2 Carly Gilman Type 1 since 35 yrs old Diabetes Son Chauncey Manzano Type 1 since 1 yrs old Relation Name Status Comments Mother Gisel Sister 1 Sonya Foster Sister 2 Carly Gilman Son Chauncey Manzano Social History Tobacco Use Types Packs/Day Years [...] week 06/28/2022 How often do you attend chur ch or hoahaoism services? Never 06/28/2022 Do you belong to any clubs o r organizations such as sikh groups, unions, fraternal or athletic groups, or [...] and heating? Not hard at all 08/11/2023 [facility] - Occupational Stress Questionnaire Answer Date Recorded [...] your living situation today? I have a [facility] place to live 08/11/2023 Education Answer Date [...] Comments Blood Pressure 104/47 09/06/2023 8:12 AM VEGETABLE LOADER Pulse 58 09/06/2023 8:12 AM VEGETABLE LOADER Temperature 36.5 ??C (97.7 ??F) 09/06/2023 8:12 AM CS T Respiratory Rate 10 09/06/2023 8:12 AM VEGETABLE LOADER Oxygen Saturation 94% 09/06/2023 8:12 AM VEGETABLE LOADER Inhaled Oxygen Concentration - - Weight 76.5 kg (168 lb 10.4 oz) 09/06/2023 7:03 AM VEGETABLE LOADER Height 170.2 cm (5' 7) 08/22/2022 10:1 0 AM VEGETABLE LOADER Body Mass Index 26.41 08/22/2022 10:10 AM VEGETABLE LOADER Plan of Treatment Health Maintenance Due Date Last Done Comments Bone Density Scan (Osteoporo sis Screen) 1948 CT Colonography 1948 Cologuard 1948 Colonoscopy 1948 Colorectal Cancer Screening 1948 FIT 1948 Fasting Glucose for Diabetes Screening 1948 Hepatitis C Screening 1948 Mammogram 1948 Depression Screening (Annual PHQ-2) 09/30/2023 Fall Risk Screen (Annual) 09/30/2023 COVID-19 Vaccine (7 - 2022-2 4 season) 2023 07/04/2023, 06/12/2022, 01/29/2022, Additional history exists DTaP,Tdap,and Td Vaccines (3 - Td or Tdap) 03/02/2032 03/02/2022, 03/28/2011 Pneumococcal vaccine (65+ years) Completed 07/06/20 15, 04/21/2014 Zoster Vaccines Completed 04/09/2019, 12/12/2018 Influenza Vaccine Completed 07/04/2023, , 07/01/2021, Additional history exists Advance Directives For more information, please contact: [phone] * Full Code (Latest Code Status on File) Date Activated Date Inactivated Comments 08/22/2022 9:31 AM 08/25/2022 2:14 PM Question Answer Comments Full Code: Discussed Care Teams Aircraft Avionics Technician Relationship Specialty Start Date End Date Elsewhere, Pcp PCP - General Internal Medicine 08/07/22
--- OUTSIDE RECORDS SUMMARY | 2024-03-24 07:47 | XMS_ITS | Clinical Summary ---
Author Organization [facility] Address [place], [place] [address] Care Team Providers Care Renewable Energy Consultant Name Role Phone Rosie Young MD Primary Care Provider + Allergies Active Allergy Reactions Criticality Noted Date Comments Amoxicillin-Pot Clavulanate 09/15/20 10 Medications Medication Sig Dispensed Refills Start Date End Date Status omeprazole (PRILOSEC) 10 mg capsule Take 1 capsule by mouth once daily before a meal. 0 10/12/2010 Active aspirin 81 mg capIndications:Dysphag ia, unspecified type Take by mouth. 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 Plantar fasciitis 09/15/2010 Peroneal tendinitis 09/15/2010 Social History Tobacco Use Types Packs/Day Years Used Date Smoking Tobacco: Never Smokeless Tobacco: Never Alcohol Use Standard Drinks/Week Comments Not Asked 0 (1 standard drink = 0.6 oz pur e alcohol) Sex and Gender Information Value Date Recorded Sex Assigned at Not on file Gender Identity Not on file Sexual Orientation Not on file Obstetrics History Last Filed Vital Signs Vital Sign Reading Time Taken Comments Blood Pressure 118/71 11/17/2010 8:51 AM MANUFACTURING QUALITY TECHNICIAN Pulse 73 11/17/2010 8:51 AM MANUFACTURING QUALITY TECHNICIAN Temperature 36.5 ??C (97.7 ??F) 09/15/2010 9:04 AM CS T Respiratory Rate - - Oxygen Saturation - - Inhaled Oxygen Concentration - - Weight 99.3 kg (219 lb) 11/17/2010 8:51 AM MANUFACTURING QUALITY TECHNICIAN Height - - Body Mass Index - - Plan of Treatment Health Maintenance Due Date Last Done Comments Tdap 1959 Depression screening for age 12+ 1960 BMI (ht and wt on same day) for age 18+ 1966 Hepatitis C screening for age 18-79 1966 Tetanus booster 1968 Colonoscopy through age 75 1993 Lipids for age 45-75 1993 Zoster (shingles) series for age 50+ (1 of 2) 1998 DEXA/DXA scan for age 65+ 2013 Medicare Wellness for age 65+ 2013 Pneumococcal series for age 65+ (1 of 1 - PCV) 2013 COVID-19 vaccine series (3 - 2022- season) 2023 06/12/2022, 11/19/2020 Influenza for age 65+ 05/31/2024 Care Teams Renewable Energy Consultant Relationship Specialty Start Date End Date Rosie Young MD [address] [place] [address] PCP - General Family Practice 11/08/22
--- NOTE | 2024-03-24 09:10 | W.ANESCHARGE ---
Anesthesia Charges Start Date/Time Anesthesia Start Date: 03/24/24 Anesthesia Start Time: 08:34 Stop Date/Time Anesthesia Stop Date: 03/24/24 Anesthesia Stop Time: 09:04 Summary Extremes of Age - Over 70 or under 1: AIRFRAME TECHNICIAN
--- NOTE | 2024-03-24 10:49 | W.ANESCHARGE ---
Anesthesia Charges Start Date/Time Anesthesia Start Date: 03/24/24 Anesthesia Start Time: 08:34 Stop Date/Time Anesthesia Stop Date: 03/24/24 Anesthesia Stop Time: 09:04 Summary Extremes of Age - Over 70 or under 1: MDA
== END 2024-03-24 07:44 | disposition home or self-care (01) ==
LOC: OP CLINIC 07:45
PROVIDERS: PCP Family Medicine; Visit Provider Internal Medicine
DX: Z12.11 Encounter for screening for malignant neoplasm of colon (principal); K63.5 Polyp of colon; K57.30 Diverticulosis of large intestine without perforation or abscess without bleeding; Z86.010 Personal history of colon polyps
CPT/HCPCS: 00811; 45380; 88305; 93005; 99100; J2704

== ENCOUNTER 2024-04-07 14:53 | Outpatient (CLI) | payer MEDICARE, BC, SELFPAY ==
--- OUTSIDE RECORDS SUMMARY | 2024-04-07 14:57 | XMS_ITS ---
Author Organization [facility] Address [address] [place] [address] Care Team Providers Care Sample Worker Name Role Phone Unavailable Unavailable Unavailable Surgery Details Not on file Complications Check Surgery Details section. Procedure Estimated Blood Loss Check Surgery Details section. Procedure Findings Check Surgery Details section. Procedure Specimens Taken Check Surgery Details section.
--- OUTSIDE RECORDS SUMMARY | 2024-04-07 14:57 | XMS_ITS | Referral Summary ---
Author Organization [facility] Address [address] [place] [address] Care Team Providers Care Mechanical Product Design Engineer Name Role Phone Elsewhere, Pcp Primary Care Provider Unavailabl e Source Comments Patient records contain information from all sites at [facility]. For routine questions regarding patient records, call [phone] during business hours, M-F 8:00 AM - 5:00 PM Central Time. Record requests for emergency care only can be directed to [phone] at any time.[facility] Allergies Active Allergy Reactions Criticality Noted [...] week 06/28/2022 How often do you attend [facility] or taoism services? Never 06/28/2022 Do you belong to any clubs o r organizations such as restorationism groups, unions, fraternal or athletic groups, or [...] and heating? Not hard at all 08/11/2023 [facility] - Occupational Stress Questionnaire Answer Date [...] your living situation today? I have a [facility] place to live 08/11/2023 Education Answer [...] Comments Blood Pressure 104/47 09/06/2023 8:12 AM BELL ATTENDANT Pulse 58 09/06/2023 8:12 AM BELL ATTENDANT Temperature 36.5 ??C (97.7 ??F) 09/06/2023 8:12 AM CS T Respiratory Rate 10 09/06/2023 8:12 AM BELL ATTENDANT Oxygen Saturation 94% 09/06/2023 8:12 AM BELL ATTENDANT Inhaled Oxygen Concentration - - Weight 76.5 kg (168 lb 10.4 oz) 09/06/2023 7:03 AM BELL ATTENDANT Height 170.2 cm (5' 7) 08/22/2022 10:1 0 AM BELL ATTENDANT Body Mass Index 26.41 08/22/2022 10:10 AM BELL ATTENDANT Plan of Treatment Not on file Advance Directives For more information, please contact: [phone] * Full Code (Latest Code Status on File) Date Activated Date Inactivated Comments 08/22/2022 9:31 AM 08/25/2022 2:14 PM Question Answer Comments Full Code: Discussed Care Teams Mechanical Product Design Engineer Relationship Specialty Start Date End Date Elsewhere, Pcp PCP - General Internal Medicine 08/07/22
--- OUTSIDE RECORDS SUMMARY | 2024-04-07 14:57 | XMS_ITS | Clinical Summary ---
Author Organization [facility] Address [address] [place] [address] Care Team Providers Care Window Machine Operator Name Role Phone Elsewhere, Pcp Primary Care Provider Unavailabl e Source Comments Patient records contain information from all sites at [facility]. For routine questions regarding patient records, call [phone] during business hours, M-F 8:00 AM - 5:00 PM Central Time. Record requests for emergency care only can be directed to [phone] at any time.[facility] Allergies Active Allergy Reactions Criticality Noted Date [...] divalproex (DEPAKOTE ER) 250 mg 24 hr tabletIndications:Coby martinez (HCC) Take two pills twice per [...] often do you attend chur ch or uatsdin services? Never 06/28/2022 Do you belong to any clubs o r organizations such as gnosticist groups, unions, fraternal or athletic groups, or [...] and heating? Not hard at all 08/11/2023 [facility] of Occupat ional Health - [...] your living situation today? I have a [facility] place to live 08/11/2023 Education [...] Comments Blood Pressure 104/47 09/06/2023 8:12 AM COUNTER POCKET TRIMMER Pulse 58 09/06/2023 8:12 AM COUNTER POCKET TRIMMER Temperature 36.5 ??C (97.7 ??F) 09/06/2023 8:12 AM CS T Respiratory Rate 10 09/06/2023 8:12 AM COUNTER POCKET TRIMMER Oxygen Saturation 94% 09/06/2023 8:12 AM COUNTER POCKET TRIMMER Inhaled Oxygen Concentration - - Weight 76.5 kg (168 lb 10.4 oz) 09/06/2023 7:03 AM COUNTER POCKET TRIMMER Height 170.2 cm (5' 7) 08/22/2022 10:1 0 AM COUNTER POCKET TRIMMER Body Mass Index 26.41 08/22/2022 10:10 AM COUNTER POCKET TRIMMER Plan of Treatment Health Maintenance Due Date [...] 2023 07/04/2023, 06/12/2022, 01/29/2022, Additional history exists Influenza Vaccine (#1) 2024 , 06/12/2022, 07/01/2021, Additional history exists DTaP,Tdap,and Td Vaccines (3 - Td or Tdap) 03/02/2032 03/02/2022, 03/28/2011 Pneumococcal vaccine (65+ years) Completed 07/06/20, 04/21/2014 Zoster Vaccines Completed 04/09/2019, 12/12/2018 Advance Directives For more information, please contact: [phone] * Full Code (Latest Code Status on File) Date Activated Date Inactivated Comments 08/22/2022 9:31 AM 08/25/2022 2:14 PM Question Answer Comments Full Code: Discussed Care Teams Window Machine Operator Relationship Specialty Start Date End Date Elsewhere, Pcp PCP - General Internal Medicine 08/07/22
--- OUTSIDE RECORDS SUMMARY | 2024-04-07 14:57 | XMS_ITS | Clinical Summary ---
Author Organization [facility] Address [place], [place] [address] Care Team Providers Care Channel Sales Director Name Role Phone Rosie Young MD Primary [...] 09/18/2010 Plantar fasciitis 09/15/2010 Peroneal tendinitis 09/15/2010 Encounters Date Type Department Care Team Description 03/24/2024 Lab Requisition [facility] [phone] Ian Khan MD from Last 3 Months Social History Tobacco Use Types Packs/Day Years [...] Comments Blood Pressure 118/71 11/17/2010 8:51 AM GALLERY OR MUSEUM GUIDE Pulse 73 11/17/2010 8:51 AM GALLERY OR MUSEUM GUIDE Temperature 36.5 ??C (97.7 ??F) 09/15/2010 9:04 AM CS T Respiratory Rate - - Oxygen Saturation - - Inhaled Oxygen Concentration - - Weight 99.3 kg (219 lb) 11/17/2010 8:51 AM GALLERY OR MUSEUM GUIDE Height - - Body Mass Index - [...] PCV) 2013 COVID-19 vaccine series (3 - 2022-24 season) 2023 06/12/2022, 11/19/2020 Influenza for age 65+ 05/31/2024 Procedures Procedure Name Priority Date/Time Associated Diagnosis Comments LAB TRACKING EVENT Routine 03/24/2024 8: 47 AM CDT PATH TISSUE EXAM Routine 03/24/2024 8:47 AM CDT from Last 3 Months Results * LAB TRACKING EVENT (03/24/2024 8:47 AM CDT) Other (Other) Client Collect / Unknown 03/24/2024 8:47 AM CDT 03/24/2024 10:16 PM CDT Ian Khan MD LAB BILL ONLY [facility] [address] [place] [id number], * PATH TISSUE EXAM (03/24/2024 8:47 AM CDT) Case Report Pathology Report ?Case: [id number] ? Authorizing Provider: ??Ian Khan MD ?Collected: ? 03/24/2024 0847 ? Ordering Location: ? [facility] ?Received: ?03/25/2024 1144 ? Pathologist: ? Zeina Carrasco MD ? Specimen: ?Ascending Colon Biopsy ? 03/26/2024 10:40 AM CDT [facility] NTRAL LABORATORY Final Diagnosis A) COLON, ASCENDING, POLYPECTOMY: 1. Tubular adenoma 2. Negative for high grade dysplasia 3. Per the colonoscopy report: ?? a. Polyp size: 2 mm ?? b. Resection: Complete ?? c. Retrieval: Complete 03/26/2024 10:40 AM CDT [facility] Clinical Information Colonoscopy. Indications: High risk colon cancer surveillance. Personal history colonic polyps. Last colonoscopy November 2018. Findings: Single 2 mm polyp in the ascending. Resected and retrieved. 03/26/2024 10:40 AM CDT [facility] NTRAL LABORAT[facility] Gross Description A) Received in formalin is a klein mucosal fragment measuring 2 mm in greatest dimension, which is entirely submitted in one cassette. It is labeled with the patient's name and designated ascending colon polyp. Theresa Kevin 03/25/2024 1:59 PM 03/26/2024 10:40 AM CDT [facility]- NTRAL LABORATORY Microscopic Description The final diagnosis is based on microscopic examination of appropriate sections of all specimens. 03/26/2024 10:40 AM CDT [facility] N[facility]AL LAB[facility]ORY Additional Information Interpreted at [facility] [employer] [facility] - [address] [place] [id number] 03/26/2024 10:40 AM CDT [facility]- NTRAL LAB[facility]AT[facility] Other (Ascending Colon Biopsy) 03/24/2024 8:47 AM CDT 03/25/2024 11:44 AM CDT Ian Khan MD PATHOLOGY/CYTOLOGY [facility] [address] [place] [address], from Last 3 Months Care Teams Channel Sales Director Relationship Specialty Start Date End Date Rosie Young MD [address] [place] [address] PCP - General Family Practice 11/08/22
== END 2024-04-07 14:54 | disposition home or self-care (01) ==
PROVIDERS: PCP Family Medicine; Visit Provider Family Medicine
DX: E78.5 Hyperlipidemia, unspecified (principal); R00.1 Bradycardia, unspecified
CPT/HCPCS: 80053; 80061; 84443

== ENCOUNTER 2024-04-15 12:48 | Outpatient (CLI) | payer MEDICARE, BC, SELFPAY ==
--- OUTSIDE RECORDS SUMMARY | 2024-04-15 12:50 | XMS_ITS | Clinical Summary ---
Author Organization [facility] Address [address] [place] [address] Care Team Providers Care Customs Examiner Name Role Phone Elsewhere, Pcp Primary Care Provider Unavailabl e Source Comments Patient records contain information from all sites at [facility]. For routine questions regarding patient records, call [phone] during business hours, M-F 8:00 AM - 5:00 PM Central Time. Record requests for emergency care only can be directed to [phone] at any time.[facility] Allergies Active Allergy Reactions Criticality Noted Date [...] often do you attend chur ch or methodist services? Never 06/28/2022 Do you belong to any clubs o r organizations such as denominational groups, unions, fraternal or athletic groups, or [...] and heating? Not hard at all 08/11/2023 [facility] of Occupat ional Health - [...] your living situation today? I have a [facility] place to live 08/11/2023 Education Answer [...] Comments Blood Pressure 104/47 09/06/2023 8:12 AM DIE TRY OUT WORKER STAMPING Pulse 58 09/06/2023 8:12 AM DIE TRY OUT WORKER STAMPING Temperature 36.5 ??C (97.7 ??F) 09/06/2023 8:12 AM CS T Respiratory Rate 10 09/06/2023 8:12 AM DIE TRY OUT WORKER STAMPING Oxygen Saturation 94% 09/06/2023 8:12 AM DIE TRY OUT WORKER STAMPING Inhaled Oxygen Concentration - - Weight 76.5 kg (168 lb 10.4 oz) 09/06/2023 7:03 AM DIE TRY OUT WORKER STAMPING Height 170.2 cm (5' 7) 08/22/2022 10:1 0 AM DIE TRY OUT WORKER STAMPING Body Mass Index 26.41 08/22/2022 10:10 AM DIE TRY OUT WORKER STAMPING Plan of Treatment Health Maintenance Due Date [...] Advance Directives For more information, please contact: [phone] * Full Code (Latest Code Status on File) Date Activated Date Inactivated Comments 08/22/2022 9:31 AM 08/25/2022 2:14 PM Question Answer Comments Full Code: Discussed Care Teams Customs Examiner Relationship Specialty Start Date End Date Elsewhere, Pcp PCP - General Internal Medicine 08/07/22
--- OUTSIDE RECORDS SUMMARY | 2024-04-15 12:50 | XMS_ITS ---
Author Organization [facility] Address [address] [place] [address] Care Team Providers Care Social Science Analyst Name Role Phone Unavailable Unavailable Unavailable Surgery Details Not on file Complications Check Surgery Details section. Procedure Estimated Blood Loss Check Surgery Details section. Procedure Findings Check Surgery Details section. Procedure Specimens Taken Check Surgery Details section.
--- OUTSIDE RECORDS SUMMARY | 2024-04-15 12:50 | XMS_ITS | Referral Summary ---
Author Organization [facility] Address [address] [place] [address] Care Team Providers Care Truck Guard Name Role Phone Elsewhere, Pcp Primary Care Provider Unavailabl e Source Comments Patient records contain information from all sites at [facility]. For routine questions regarding patient records, call [phone] during business hours, M-F 8:00 AM - 5:00 PM Central Time. Record requests for emergency care only can be directed to [phone] at any time.[facility] Allergies Active Allergy Reactions Criticality Noted [...] week 06/28/2022 How often do you attend [facility] or worship services? Never 06/28/2022 Do you belong to any clubs o r organizations such as adventist groups, unions, fraternal or athletic groups, or [...] and heating? Not hard at all 08/11/2023 [facility] - Occupational Stress Questionnaire Answer Date [...] your living situation today? I have a [facility] place to live 08/11/2023 Education Answer [...] Comments Blood Pressure 104/47 09/06/2023 8:12 AM JACQUARD FIXER Pulse 58 09/06/2023 8:12 AM JACQUARD FIXER Temperature 36.5 ??C (97.7 ??F) 09/06/2023 8:12 AM CS T Respiratory Rate 10 09/06/2023 8:12 AM JACQUARD FIXER Oxygen Saturation 94% 09/06/2023 8:12 AM JACQUARD FIXER Inhaled Oxygen Concentration - - Weight 76.5 kg (168 lb 10.4 oz) 09/06/2023 7:03 AM JACQUARD FIXER Height 170.2 cm (5' 7) 08/22/2022 10:1 0 AM JACQUARD FIXER Body Mass Index 26.41 08/22/2022 10:10 AM JACQUARD FIXER Plan of Treatment Not on file Advance Directives For more information, please contact: [phone] * Full Code (Latest Code Status on File) Date Activated Date Inactivated Comments 08/22/2022 9:31 AM 08/25/2022 2:14 PM Question Answer Comments Full Code: Discussed Care Teams Truck Guard Relationship Specialty Start Date End Date Elsewhere, Pcp PCP - General Internal Medicine 08/07/22
--- OUTSIDE RECORDS SUMMARY | 2024-04-15 12:50 | XMS_ITS | Clinical Summary ---
Author Organization [facility] Address [place], [place] [address] Care Team Providers Care Change Advisor Name Role Phone Rosie Young MD Primary [...] Department Care Team Description 03/24/2024 Lab Requisition [facility] [phone] Ian Khan MD from Last 3 Months [...] Comments Blood Pressure 118/71 11/17/2010 8:51 AM PURCHASING ASSISTANT Pulse 73 11/17/2010 8:51 AM PURCHASING ASSISTANT Temperature 36.5 ??C (97.7 ??F) 09/15/2010 9:04 AM CS T Respiratory Rate - - Oxygen Saturation - - Inhaled Oxygen Concentration - - Weight 99.3 kg (219 lb) 11/17/2010 8:51 AM PURCHASING ASSISTANT Height - - Body Mass Index - - Plan of Treatment Upcoming Encounters Date Type Department Care Team (Late st Contact Info) Description 04/15/2024 1:00 PM CDT Ancillary Procedure [facility] & [address] [address] Health Maintenance Due Date Last Done Comments [...] 1 - PCV) 2013 COVID-19 vaccine series (2022- season) 2023 06/12/2022, 11/19/2020 Influenza for age [...] CDT Ian Khan MD [facility] [address] [place] [address], * PATH TISSUE EXAM (03/24/2024 8:47 AM CDT) Case Report Pathology Report ?Case: [id number] ? Authorizing Provider: ??Ian Khan MD ?Collected: ? 03/24/2024 0847 ? Ordering Location: ? [facility] ?Received: ?03/25/2024 1144 ? Pathologist: ? Zeina Carrasco MD ? Specimen: ?Ascending Colon Biopsy ? 03/26/2024 10:40 AM CDT [employer] [facility] NTRAL LABORATORY Final Diagnosis A) COLON, ASCENDING, POLYPECTOMY: 1. Tubular adenoma 2. Negative for high grade dysplasia 3. Per the colonoscopy report: ?? a. Polyp size: 2 mm ?? b. Resection: Complete ?? c. Retrieval: Complete 03/26/2024 10:40 AM CDT [facility]- NTRAL LABORATORY Clinical Information Colonoscopy. Indications: High risk colon cancer surveillance. Personal history colonic polyps. Last colonoscopy November 2018. Findings: Single 2 mm polyp in the ascending. Resected and retrieved. 03/26/2024 10:40 AM CDT [facility] NTRAL LABORATORY Gross Description A) Received in formalin is a klein mucosal fragment measuring 2 mm in greatest dimension, which is entirely submitted in one cassette. It is labeled with the patient's name and designated ascending colon polyp. Theresa Kevin 03/25/2024 1:59 PM 03/26/2024 10:40 AM CDT [facility]- NTRAL LABORATORY Microscopic Description The final diagnosis is based on microscopic examination of appropriate sections of all specimens. 03/26/2024 10:40 AM CDT [facility]- NTRAL LABORATORY Additional Information Interpreted at [facility], Central Laboratory - [address] [place] [address] 03/26/2024 10:40 AM CDT [facility]- NTRAL LABORATORY Other (Ascending Colon Biopsy) 03/24/2024 8:47 AM CDT 03/25/2024 11:44 AM CDT Ian Khan MD PATHOLOGY[facility] [address] [place] [address], from Last 3 Months Care Teams Change Advisor Relationship Specialty Start Date End Date Rosie Young MD [address] [place] [address] PCP - General Family Practice 11/08/22
== END 2024-04-15 12:49 | disposition home or self-care (01) ==
LOC: RAD 12:49
PROVIDERS: PCP Family Medicine; Visit Provider Family Medicine
DX: R00.1 Bradycardia, unspecified (principal); I95.9 Hypotension, unspecified; G47.30 Sleep apnea, unspecified
CPT/HCPCS: 93306

== ENCOUNTER 2024-05-22 11:26 | Outpatient (CLI) | payer MEDICARE, BC, SELFPAY ==
--- OUTSIDE RECORDS SUMMARY | 2024-05-22 11:29 | XMS_ITS | Referral Summary ---
Author Organization [facility] Address [address] [place] [address] Care Team Providers Care Welding Process Specialist Name Role Phone Elsewhere, Pcp Primary Care Provider Unavailabl e Source Comments Patient records contain information from all sites at [facility]. For routine questions regarding patient records, call [phone] during business hours, M-F 8:00 AM - 5:00 PM Central Time. Record requests for emergency care only can be directed to [phone] at any time.[facility] Encounters Date Type Department Care Team Description 05/03/2024 Refill Department of Neurology in [place], [place] [address] [place] [phone] Kevin Gould M.D. Med Refill 04/27/2024 Orders Only [facility] Mail [address] [place] [phone] Jackie Sheridan, Pharm.D., R.Ph. 04/27/2024 2:00 PM CDT Telemedicine Department of Neurology in [place], [place] [address] [place] [phone] Silver Velazquez M.D. Seizure (HCC) 04/24/2024 12:15 PM CDT Clinical Communication Virtual Review in [place], [place] 200 [place] [address] Pre-visit Intake 04/21/2024 Orders Only Department of Neurology in [place], [place] [address] [place] [phone] Silver Velazquez M.D. Seizure (HCC) (Primary Dx) 04/17/2024 Orders Only Department of Neurology in [place], [place] [address] [place] [address] Silver Velazquez M.D. Seizure (HCC) (Primary Dx) 04/17/2024 Refill Department of Neurology in [place], [place] [address] [place] [address] Silver Velazquez M.D. Med Refill from Last 3 Months Allergies Active Allergy Reactions Criticality Noted Date Comments Amoxicillin Other (see comments) Low 10/15/2022 Amoxicillin-Pot Clavulanate Hives (Reselect Reaction) 09/15/2010 Clavulanic Acid Other (see comments) Low 10/15/2022 Rash, itching Lamotrigine Itching,Other (see comments),Rash Low 07/09/2022 Prednisone Rash Low 10/15/2022 Medications Medication Sig Dispensed Refills Start Date End Date Status LORazepam (ATIVAN) 0.5 mg tabletIndication s:Seizure (HCC) Take 0.5 pill at 8:00 a.m. and 0.5 pill at 8:00 p.m. 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 360 tablet 3 4 Active omeprazole (PriLOSEC) [address] capsule Take 20 mg by mouth every morning before breakfast. 2 04/24/20 24 Discontinued(The rapdenise completed) divalproex (DEPAKOTE ER) 250 mg 24 hr tabletIndication s:Seizure (HCC) Take two pills twice per day (two in the morning and two in the evening). 120 tablet 11 3 04/27/20 24 Discontinued(Dos e adjustment) divalproex (Depakote ER) 250 mg 24 hr tabletIndication s:Seizure (HCC) Take 1 pill in the morning with food, 1 pill in the midday with food, and 2 pills at night with food. 4 05/04/20 24 Discontinued Active Problems Patient Care Coordination No te [...] 06/28/2022 How often do you attend chur or worship services? Never 06/28/2022 Do you belong to any clubs o r organizations such as sabianist groups, unions, fraternal or athletic groups, or [...] and heating? Not hard at all 08/11/2023 [facility] - [...] your living situation today? I have a [facility] place to live 08/11/2023 Education Answer Date [...] Comments Blood Pressure 104/47 09/06/2023 8:12 AM MOLDER FLOOR Pulse 58 09/06/2023 8:12 AM MOLDER FLOOR Temperature 36.5 ??C (97.7 ??F) 09/06/2023 8:12 AM CS T Respiratory Rate 10 09/06/2023 8:12 AM MOLDER FLOOR Oxygen Saturation 94% 09/06/2023 8:12 AM MOLDER FLOOR Inhaled Oxygen Concentration - - Weight 76.5 kg (168 lb 10.4 oz) 09/06/2023 7:03 AM MOLDER FLOOR Height 170.2 cm (5' 7) 08/22/2022 10:1 0 AM MOLDER FLOOR Body Mass Index 26.41 08/22/2022 10:10 AM MOLDER FLOOR Plan of Treatment Upcoming Encounters Date Type Department Care Team (Latest Contact Info) Description 07/16/2024 9:00 AM CDT Clinical Communication Virtual Review in [place], [place] 200 [place] [address] 07/20/2024 11:00 AM CDT Office Visit Department of Neurology in [place], [place] [address] [place] [phone] Silver Velazquez M.D. [address] [place] [phone] Advance Directives For more information, please contact: [phone] * Full Code (Latest Code Status on File) Date Activated Date Inactivated Comments 08/22/2022 9:31 AM 08/25/2022 2:14 PM Question Answer Comments Full Code: Discussed Care Teams Welding Process Specialist Relationship Specialty Start Date End Date Elsewhere, Pcp PCP - General Internal Medicine 08/07/22
--- OUTSIDE RECORDS SUMMARY | 2024-05-22 11:29 | XMS_ITS | Clinical Summary ---
Author Organization [facility] Address [place], [place] [address] Care Team Providers Care Tank Farm Gauger Name Role Phone Ariel Rocha MD Primary Care Provider + Allergies Active [...] Encounters Date Type Department Care Team Description 05/22/[address] [facility] [address] [place] [address] Lillian Otto 1 scan: (1-Ord) Zio report 04/23/2024 3:00 PM CDT Office Visit [facility] [address] [place] [address] Noah Vasquez MD CV General Cardiology New 04/15/2024 1:00 PM CDT Ancillary Procedure [facility] [address] [place] [address] 03/24/2024 Lab Requisition [facility] [phone] Ian Khan MD from Last 3 Months Social History Tobacco Use Types Packs/Day Years Used Date Smoking Tobacco: Never Smokeless Tobacco: Never Alcohol Use Standard Drinks/Week Comments Not Asked 0 (1 standard drink = 0.6 oz pur e alcohol) Social Connections Answer Date Recorded Frequency of Communication with Friends and Fami ly Not on file 04/23/2024 Sex and Gender Information Value Date Recorded Sex Assigned at Not on file Gender Identity Not on file Sexual Orientation Not on file Obstetrics History Last Filed Vital Signs Vital Sign Reading Time Taken Comments Blood Pressure 118/71 11/17/2010 8:51 AM STUDENT DEAN Pulse 73 11/17/2010 8:51 AM STUDENT DEAN Temperature 36.5 ??C (97.7 ??F) 09/15/2010 9:04 AM CS T Respiratory Rate - - Oxygen Saturation - - Inhaled Oxygen Concentration - - Weight 99.3 kg (219 lb) 11/17/2010 8:51 AM STUDENT DEAN Height - - Body Mass Index - - Plan of Treatment Health Maintenance Due Date Last Done Comments Tdap 1959 Depression screening for age 12+ 1960 BMI (ht and wt on same day) for age 18+ 1966 Hepatitis C screening for ag e 18-79 1966 Tetanus booster 1968 Colonoscopy through age 75 1993 Lipids for age 45-75 1993 Zoster (shingles) series for age 50+ (1 of 2) 1998 DEXA/DXA scan for age 65+ 2013 Medicare Wellness for age 65+ 2013 Pneumococcal series for age 65+ (1 of 1 - PCV) 2013 COVID-19 vaccine series (2022- season) 2023 07/04/2023, 06/12/2022, 01/29/2022, Additional history exists Influenza for age 65+ 05/31/2024 Procedures Procedure Name Priority Date/Time Associated Diagnosis Comments EXTENDED HOLTER Routine 05/05/2024 Bradycardia, unspecified ECHO TTE COMPLETE WO CONTRAST Routine 04/15/2024 2:26 PM CDT Bradycardia, unspecified Hypotension LAB TRACKING EVENT Routine 03/24/2024 8: 47 AM CDT PATH TISSUE EXAM Routine 03/24/2024 8:47 AM CDT from Last 3 Months Results * EXTENDED HOLTER (05/05/2024) Noah Vasquez MD CARDIAC SERVICES ORD * ECHO TTE COMPLETE WO CONTRAST (04/15/2024 2:26 PM CDT) AORTIC VALVE MEAN PG 3 mmHg EJECTION FRACTION 61 % LVEDD 4.3 cm Anatomical Region Laterality Modality Ultrasound 04/15/2024 1:44 PM CDT Narrative 04/15/2024 4:43 PM CDT ECHOCARDIOGRAM DARLENE BOWDEN ? Accession#: ?? [id number] : ?1950 73 years Study Date: ?? 04/15/2024 1:44:55 PM Gender: F ?BP: ? 139/69 mmHg Height: 170.00 cm ?BSA: ?1.88 m? ? ? Weight: 77.00 kg ? Tech: ? MTS ? Referring MD: ARIEL ROCHA Site: ? [facility] Reading Location: MOBILE OP Patient Location: Outpatient. Procedure: 2D, Color Doppler and Spectral Doppler. Indication for study: Bradycardia, unspecified; Hypotension Cardiac Rhythm: Sinus bradycardia.Study quality: Good. Final Impressions: 1. Normal left ventricular size, normal wall thickness, normal global systolic function, calculated EF of 61 %. 2. Right ventricular cavity size is normal, global systolic RV function is normal. Comparison There are no prior studies on this patient for comparison purposes. Chamber Sizes and Function Normal left ventricular size, normal wall thickness, normal global systolic function, calculated EF of 61 %. Left atrial size is normal. Left atrial pressure is normal. Right ventricular cavity size is normal, global systolic RV function is normal. RV wall thickness is normal. The right atrium is normal. Right atrial volume index is 13 ml/m? ? ?. Right atrial area is 12 cm? ? ?. The pulmonary artery is of normal size and origin. The sinus of Valsalva is normal sized. The ascending aorta is normal sized. Valves, RV Pressures and Diastolic Function The aortic valve is normal in structure and trileaflet, no stenosis and no regurgitation. The mitral valve is normal in structure, trace mitral regurgitation. Normal diastolic function for age. The tricuspid valve is normal in structure. Tricuspid regurgitation is trace regurgitation. Unable to assess right ventricular systolic pressure. The pulmonic valve is normal. Trace pulmonary regurgitation. Masses, Effusion, Shunts There is no pericardial effusion. The inferior vena cava is normal sized, respiratory size variation greater than 50%. No left to right shunting was detected by limited color flow Doppler interrogation of the interatrial septum. MEASUREMENTS AND CALCULATIONS 2-D Measurements and LV Function: LVID (d) 4.3 cm Planimetered EF 61 % LVID (s) 2.6 cm LV FS% (2D) ? 41 % IVS (d) ??1.1 cm LVOT diameter ?? 2.0 cm LVPW (d) 1.0 cm HR ?48 bpm Ao Sinus 3.0 cm LA Vol index ?24 ml/m2 Asc Ao ?? 3.4 cm RA Vol index ?13 ml/m2 ?RA area ? 12 cm? ? ? Diastology: Mitral ? Tissue Doppler ?Pulmonary veins E Peak 0.6 m/s e', Septum ? 0.07 m/s Pulm s ?56.6 cm/s A Peak 0.4 m/s e', Lateral ?0.10 m/s Pulm d ?59.5 cm/s E/A ?1.6 ? E/e' Average ?? 7.08 ? Pulm s/d ratio ??0.95 Aortic Valve: Vmax ? 1.1 m/s ??BETSY (V) ?? 2.88 cm? ? ? VTI ?0.25 m ?? BETSY (I) ?? 2.91 cm? ? ? LVOT V max 1.0 m/s ??Max PG ?5 mmHg LVOT VTI ?? 0.23 m ?? Mean PG ?? 3 mmHg SV ? 74 ml ?Dim Index 0.91 SV index ?? 39 ml/m? ? ? CO ?3.5 l/min ?CI ?1.9 l/min/m? ? ? Tricuspid Valve and estimated PA pressures: TAPSE 1.9 cm . This study was interpreted by an [facility] accredited facility. CC: [facility] ([facility]. ??Final ?? Procedure Note Alfa Chacon MD - 04/15/2024 ECHOCARDIOGRAM DARLENE BOWDEN : 1950 73 years Study Date: 04/15/2024 1:44:55 PM Gender: F BP: 139/69 mmHg Height: 170.00 cm BSA: 1.88 m? ? ? Weight: 77.00 kg Tech: [facility] Referring MD: ARIEL ROCHA Site: [facility] Reading Location: MOBILE OP Patient Location: Outpatient. Procedure: 2D, Color Doppler and Spectral Doppler. Indication for study: Bradycardia, unspecified; Hypotension Cardiac Rhythm: Sinus bradycardia.Study quality: Good. Final Impressions: 1. Normal left ventricular size, normal wall thickness, normal globalsystolic function, calculated EF of 61 %. 2. Right ventricular cavity size is normal, global systolic RV functionis normal. Comparison There are no prior studies on this patient for comparison purposes. Chamber Sizes and Function Normal left ventricular size, normal wall thickness, normal globalsystolic function, calculated EF of 61 %. Left atrial size is normal. Leftatrial pressure is normal. Right ventricular cavity size is normal, globalsystolic RV function is normal. RV wall thickness is normal. The rightatrium is normal. Right atrial volume index is 13 ml/m? ? ?. Right atrialarea is 12 cm? ? ?. The pulmonary artery is of normal size and origin. Thesinus of Valsalva is normal sized. The ascending aorta is normal sized. Valves, RV Pressures and Diastolic Function The aortic valve is normal in structure and trileaflet, no stenosis and noregurgitation. The mitral valve is normal in structure, trace mitralregurgitation. Normal diastolic function for age. The tricuspid valve isnormal in structure. Tricuspid regurgitation is trace regurgitation.Unable to assess right ventricular systolic pressure. The pulmonic valveis normal. Trace pulmonary regurgitation. Masses, Effusion, Shunts There is no pericardial effusion. The inferior vena cava is normal sized,respiratory size variation greater than 50%. No left to right shunting wasdetected by limited color flow Doppler interrogation of the interatrialseptum. MEASUREMENTS AND CALCULATIONS 2-D Measurements and LV Function: LVID (d) 4.3 cm Planimetered EF 61 % LVID (s) 2.6 cm LV FS% (2D) 41 % IVS (d) 1.1 cm LVOT diameter 2.0 cm LVPW (d) 1.0 cm HR 48 bpm Ao Sinus 3.0 cm LA Vol index 24 ml/m2 Asc Ao 3.4 cm RA Vol index 13 ml/m2 RA area 12 cm? ? ? Diastology: Mitral Tissue Doppler Pulmonary veins E Peak 0.6 m/s e', Septum 0.07 m/s Pulm s 56.6 cm/s A Peak 0.4 m/s e', Lateral 0.10 m/s Pulm d 59.5 cm/s E/A 1.6 E/e' Average 7.08 Pulm s/d ratio 0.95 Aortic Valve: Vmax 1.1 m/s BETSY (V) 2.88 cm? ? ? VTI 0.25 m BETSY (I) 2.91 cm? ? ? LVOT V max 1.0 m/s Max PG 5 mmHg LVOT VTI 0.23 m Mean PG 3 mmHg SV 74 ml Dim Index 0.91 SV index 39 ml/m? ? ? CO 3.5 l/min CI 1.9 l/min/m? ? ? Tricuspid Valve and estimated PA pressures: TAPSE 1.9 cm . This study was interpreted by an [facility] accredited facility. CC: [facility] ([facility]) [facility]. Final Ariel Rocha MD ECHO ORD * LAB TRACKING EVENT (03/24/2024 8:47 AM CDT) Other (Other) Client Collect / Unknown 03/24/2024 8:47 AM CDT 03/24/2024 10:16 PM CDT Ian Khan MD LAB BILL ONLY [facility] [address] [place] [address], * PATH TISSUE EXAM (03/24/2024 8:47 AM CDT) Case Report Pathology Report ?Case: [id number] ? Authorizing Provider: ??Ian Khan MD ?Collected: ? 03/24/2024 0847 ? Ordering Location: ? [facility] ?Received: ?03/25/2024 1144 ? Pathologist: ? Zeina Carrasco MD ? Specimen: ?Ascending Colon Biopsy ? 03/26/2024 10:40 AM [facility] Final Diagnosis A) COLON, ASCENDING, POLYPECTOMY: 1. Tubular adenoma 2. Negative for high grade dysplasia 3. Per the colonoscopy report: ?? a. Polyp size: 2 mm ?? b. Resection: Complete ?? c. Retrieval: Complete 03/26/2024 10:40 AM [facility] Clinical Information Colonoscopy. Indications: High risk colon cancer surveillance. Personal history colonic polyps. Last colonoscopy November 2018. Findings: Single 2 mm polyp in the ascending. Resected and retrieved. 03/26/2024 10:40 AM [facility] Gross Description A) Received in formalin is a klein mucosal fragment measuring 2 mm in greatest dimension, which is entirely submitted in one cassette. It is labeled with the patient's name and designated ascending colon polyp. Theresa Kevin 03/25/2024 1:59 PM 03/26/2024 10:40 AM [facility] Microscopic Description The final diagnosis is based on microscopic examination of appropriate sections of all specimens. 03/26/2024 10:40 AM [facility] Additional Information Interpreted at [facility] - [address] [facility] [address] [address] 03/26/2024 10:40 AM CDT [facility] Other (Ascending Colon Biopsy) 03/24/2024 8:47 AM CDT 03/25/2024 11:44 AM CDT Ian Khan MD PATHOLOGY/CYTOLOGY [facility] [address] [place] [address], from Last 3 Months Care Teams Tank Farm Gauger Relationship Specialty Start Date End Date Ariel Rocha MD [address] [place] [address] PCP - General Family Practice 11/08/22
--- OUTSIDE RECORDS SUMMARY | 2024-05-22 11:29 | XMS_ITS | Encounter Summary ---
Author Organization [facility] Address [address] [place] [address] Care Team Providers Care Hardwood Flooring Specialist Name Role Phone Elsewhere, Pcp Primary Care Provider Unavailabl e Reason for Visit * Reason Comments Med Refill Encounter Details Date Type Department Care Team ([facility] st Contact Info) Description 04/17/2024 Refill Department of Neurology in [place], [place] [address] [place] [phone] Silver Velazquez M.D. [address] [place] [address] Med Refill Social History Tobacco Use Types Packs/Day Years Used Date Smoking Tobacco: Never Smokeless Tobacco: Never Alcohol Use Standard Drinks/Week Comments Not Currently [...] often do you attend chur ch or mu-ism services? Never 06/28/2022 Do you belong to any clubs o r organizations such as zoroastrianism groups, unions, fraternal or athletic groups, or [...] and heating? Not hard at all 08/11/2023 [facility] - Occupational Stress [...] your living situation today? I have a [facility] place to live 08/11/2023 Education Answer Date Recorded What is the highest level of school you have completed or the highest degree you have received? Doctorate 06/28/2022 Sex and Gender Information Value Date Recorded Sex Assigned at Female 06/28/2022 11:57 AM CDT Gender Identity Female 06/28/2022 11:57 AM CDT Sexual Orientation Straight 06/28/2022 11 :57 AM CDT documented as of this encounter Plan of Treatment Upcoming Encounters Date Type Department Care Team (Latest Contact Info) Description 07/16/2024 9:00 AM CDT Clinical Communication Virtual Review in [place], [place] [address] [place] [address] 07/20/2024 11:00 AM CDT Office Visit Department of Neurology in [place], [place] [address] [place] [phone] Silver Velazquez M.D. 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
--- OUTSIDE RECORDS SUMMARY | 2024-05-22 11:29 | XMS_ITS | Clinical Summary ---
Author Organization [facility] Address [address] [place] [address] Care Team Providers Care Photogrammetric Engineer Name Role Phone Elsewhere, Pcp Primary Care Provider Unavailabl e Source Comments Patient records contain information from all sites at [facility]. For routine questions regarding patient records, call [phone] during business hours, M-F 8:00 AM - 5:00 PM Central Time. Record requests for emergency care only can be directed to [phone] at any time.[facility] Allergies Active Allergy Reactions Criticality Noted Date [...] morning before breakfast. 2 04/24/20 24 Discontinued(The rapy completed) divalproex (DEPAKOTE ER) 250 mg 24 [...] Status Epilepticus 08/22/2022 Abnormal Electroencephalogram Nonspecific 2021 Encounters Date Type Department Care Team Description 05/03/2024 Refill Department of Neurology in [place], [place] [address] [place] [phone] Kevin Gould M.D. Med Refill 04/27/2024 2:00 PM CDT Telemedicine Department of Neurology in [place], [place] [address] [place] [phone] Silver Velazquez M.D. Seizure (HCC) 04/27/2024 Orders Only [facility] Mail [address] [place] [phone] Jackie Sheridan, Pharm.D., R.Ph. 04/24/2024 12:15 PM CDT Clinical Communication Virtual Review in [place], [place] [address] [place] [phone] Pre-visit Intake 04/21/2024 Orders Only Department of Neurology in [place], [place] [address] [place] [address] Silver Velazquez M.D. Seizure (HCC) (Primary Dx) 04/17/2024 Orders Only Department of Neurology in [place], [place] [address] [place] [address] Silver Velazquez M.D. Seizure (HCC) (Primary Dx) 04/17/2024 Refill Department of Neurology in [place], [place] [address] [place] [address] Silver Velazquez M.D. Med Refill from Last 3 Months Family History Medical History Relation Name Comments [...] often do you attend chur ch or adventist services? Never 06/28/2022 Do you belong to any clubs o r organizations such as holiness groups, unions, fraternal or athletic groups, or [...] and heating? Not hard at all 08/11/2023 [facility] - Occupational Stress [...] your living situation today? I have a [facility] place to live 08/11/2023 Education [...] Comments Blood Pressure 104/47 09/06/2023 8:12 AM LICENSED AND CERTIFIED MIDWIFE Pulse 58 09/06/2023 8:12 AM LICENSED AND CERTIFIED MIDWIFE Temperature 36.5 ??C (97.7 ??F) 09/06/2023 8:12 AM CS T Respiratory Rate 10 09/06/2023 8:12 AM LICENSED AND CERTIFIED MIDWIFE Oxygen Saturation 94% 09/06/2023 8:12 AM LICENSED AND CERTIFIED MIDWIFE Inhaled Oxygen Concentration - - Weight 76.5 kg (168 lb 10.4 oz) 09/06/2023 7:03 AM LICENSED AND CERTIFIED MIDWIFE Height 170.2 cm (5' 7) 08/22/2022 10:1 0 AM LICENSED AND CERTIFIED MIDWIFE Body Mass Index 26.41 08/22/2022 10:10 AM LICENSED AND CERTIFIED MIDWIFE Plan of Treatment Upcoming Encounters Date Type Department Care Team (Latest Contact Info) Description 07/16/2024 9:00 AM CDT Clinical Communication Virtual Review in [place], [place] 200 [place] [address] 07/20/2024 11:00 AM CDT Office Visit Department of Neurology in [place], [place] [address] [place] [phone] Silver Velazquez M.D. [address] [place] [phone] Health Maintenance Due Date Last Done Comments Bone Density Scan (Osteoporo sis Screen) 1950 CT Colonography 1950 Cologuard 1950 Colonoscopy 1950 Colorectal Cancer Screening 1950 FIT 1950 Fasting Glucose for Diabetes Screening 1950 Hepatitis C Screening 1950 Mammogram 1950 Depression Screening (Annual PHQ-2) 09/30/2023 Fall Risk Screen (Annual) 09/30/2023 COVID-19 Vaccine (2022-10 4 season) 2023 07/04/2023, 06/12/2022, 01/29/2022, Additional history exists Influenza Vaccine (#1) 2024 , 06/12/2022, 07/01/2021, Additional history exists DTaP,Tdap,and Td Vaccines (3 - Td or Tdap) 03/02/2032 03/02/2022, 03/28/2011 Pneumococcal vaccine (65+ years) Completed 07/06/20 15, 04/21/2014 Zoster Vaccines Completed 04/09/2019, 12/12/2018 Advance Directives For more information, please contact: [phone] * Full Code (Latest Code Status on File) Date Activated Date Inactivated Comments 08/22/2022 9:31 AM 08/25/2022 2:14 PM Question Answer Comments Full Code: Discussed Care Teams Photogrammetric Engineer Relationship Specialty Start Date End Date Elsewhere, Pcp PCP - General Internal Medicine 08/07/22
--- OUTSIDE RECORDS SUMMARY | 2024-05-22 11:29 | XMS_ITS | Encounter Summary ---
Author Organization [facility] Address [address] [place] [address] Care Team Providers Care Gum Cook Name Role Phone Elsewhere, Pcp Primary Care Provider Unavailabl e Encounter Details Date Type Department Care Team (Late st Contact Info) Description 04/27/2024 Orders Only [facility] Mail [address] [place] [phone] Jackie Sheridan, Pharm.D., R.Ph. [address] [place] [address] Social History Tobacco Use Types Packs/Day Years [...] often do you attend chur ch or catholic services? Never 06/28/2022 Do you belong to any clubs o r organizations such as alevism groups, unions, fraternal or athletic groups, or [...] and heating? Not hard at all 08/11/2023 [facility] - Occupational Stress Questionnaire Answer [...] your living situation today? I have a [facility] place to live 08/11/2023 Education Answer [...] AM CDT Clinical Communication Virtual Review in [place], [place] [address] [place] [address] 07/20/2024 11:00 AM CDT Office Visit Department of Neurology in [place], [place] [address] [place] [address] Silver Velazquez M.D. [address] [place] [address] documented as of this encounter Visit Diagnoses Not on filedocumented in this encounter Care Teams Gum Cook Relationship Specialty Start Date End Date Elsewhere, Pcp PCP - General Internal Medicine 08/07/22 documented as of this encounter
--- OUTSIDE RECORDS SUMMARY | 2024-05-22 11:29 | XMS_ITS | Encounter Summary ---
Author Organization [facility] Address [address] [place] [address] Care Team Providers Care Fleecer Name Role Phone Elsewhere, Pcp Primary Care Provider Unavailabl e Reason for Referral * Outpatient (Routine) - Closed Specialty Diagnoses / Procedures Referred By Angel t Referred To Contact Video Medicine Diagnoses Seizure (HCC) Silver Velazquez M.D. [address] [place] [phone] [facility] Referral ID Status Reason Start Date Expiration Date Visits Re quested Visits Authorized [id number] Closed 04/21/2024 10/21/2025 1 1 Scheduling Instructions PLEASE SCHEDULE THIS VIDEO VISIT for April 27, at 2:00 p.m.. PLEASE CALL TO INFORM PATIENT. Thank you. Encounter Details Date Type Department Care Team (Late st Contact Info) Description 04/21/2024 Orders Only Department of Neurology in [place], [place] [address] [place] [phone] Silver Velazquez M.D. [address] [place] [phone] Seizure (HCC) (Primary Dx) Social History Tobacco Use Types Packs/Day Years [...] week 06/28/2022 How often do you attend [facility] or uatsdin services? Never 06/28/2022 Do you belong to any clubs o r organizations such as restorationist groups, unions, fraternal or athletic groups, or [...] Not hard at all 08/11/2023 [facility] of Occupat ional Health - Occupational [...] your living situation today? I have a [facility] place to live 08/11/2023 Education Answer [...] AM CDT Clinical Communication Virtual Review in [address] [phone] 07/20/2024 11:00 AM CDT Office Visit Department of Neurology in [place], [place] [address] [place] [address] Silver Velazquez M.D. [address] [place] [address] Scheduled Referrals Name Type Priority Associated Diagnoses Orde r Schedule Video anyplace visit Outpatient Referral Routine Seizure (HCC) Expected: 04/27/2024, Expires: 07/22/2025 documented as of this encounter Visit Diagnoses Diagnosis Seizure (HCC)- Primary documented in this encounter Care Teams Fleecer Relationship Specialty Start Date End Date Elsewhere, Pcp PCP - General Internal Medicine 08/07/22 documented as of this encounter
--- OUTSIDE RECORDS SUMMARY | 2024-05-22 11:29 | XMS_ITS | Encounter Summary ---
Author Organization [facility] Address [address] [place] [address] Care Team Providers Care Serology Technician Name Role Phone Elsewhere, Pcp Primary Care Provider Unavailabl e Reason for Visit * Reason Onset Date Comments Pre-visit Intake 04/24/2024 Encounter Details Date Type Department Care Team (Latest Contact Info) Description 04/24/2024 12:15 PM CDT Clinical Communication Virtual Review in [address] [phone] Pre-visit Intake Social History Tobacco Use Types Packs/Day Years [...] often do you attend chur ch or moravian services? Never 06/28/2022 Do you belong to any clubs o r organizations such as jehovah's witness groups, unions, fraternal or athletic groups, or [...] and heating? Not hard at all 08/11/2023 [facility] of Occupat ional Health - Occupational [...] your living situation today? I have a [facility] place to live 08/11/2023 Education [...] AM CDT Clinical Communication Virtual Review in [place], [place] [address] [place] [address] 07/20/2024 11:00 AM CDT Office Visit Department of Neurology in [place], [place] [address] [place] [phone] Silver Velazquez M.D. [address] [place] [phone] documented as of this encounter Visit Diagnoses Not on filedocumented in this encounter Care Teams Serology Technician Relationship Specialty Start Date End Date Elsewhere, Pcp PCP - General Internal Medicine 08/07/22 documented as of this encounter
--- OUTSIDE RECORDS SUMMARY | 2024-05-22 11:29 | XMS_ITS | Encounter Summary ---
Author Organization [facility] Address [address] [place] [address] Care Team Providers Care Waiter/Waitress Name Role Phone Elsewhere, Pcp Primary Care Provider Unavailabl e Reason for Referral * Outpatient (Routine) - Authorized Specialty Diagnoses / Procedures Referred By Angel t Referred To Contact Neurology Diagnoses Seizure (HCC) Silver Velazquez M.D. [address] [place] [phone] [facility] Referral ID Status Reason Start Date Expiration Date V isits Requested Visits Authorized [id number] Authorized 04/17/2024 10/17/2025 1 1 Encounter Details Date Type Department Care Team ([facility] st Contact Info) Description 04/17/2024 Orders Only Department of Neurology in [place], [place] [address] [place] [phone] Silver Velazquez M.D. [address] [place] [phone] Seizure (HCC) (Primary Dx) Social History Tobacco [...] How often do you attend chur or cheondoism services? Never 06/28/2022 Do you belong to any clubs o r organizations such as taoism groups, unions, fraternal or athletic groups, or [...] and heating? Not hard at all 08/11/2023 [facility] of Occupat ional Health - Occupational Stress [...] your living situation today? I have a [facility] place to live 08/11/2023 Education Answer [...] AM CDT Clinical Communication Virtual Review in [place], [place] [address] [place] [address] 07/20/2024 11:00 AM CDT Office Visit Department of Neurology in [place], [place] [address] [place] [address] Silver Velazquez M.D. [address] [place] [address] Scheduled Referrals Name Type Priority Associated Diagnoses Orde r Schedule Neurology office visit (clinic) Outpatient Referral Routine Seizure (HCC) Expected: 04/17/2024, Expires: 07/18/2025 documented as of this encounter Visit Diagnoses Diagnosis Seizure (HCC)- Primary documented in this encounter Care Teams Waiter/Waitress Relationship Specialty Start Date End Date Elsewhere, Pcp PCP - General Internal Medicine 08/07/22 documented as of this encounter
--- OUTSIDE RECORDS SUMMARY | 2024-05-22 11:29 | XMS_ITS ---
Author Organization [facility] Address [address] [place] [address] Care Team Providers Care Hand Molder And Caster Name Role Phone Unavailable Unavailable Unavailable Surgery Details Not on file Complications Check Surgery Details section. Procedure Estimated Blood Loss Check Surgery Details section. Procedure Findings Check Surgery Details section. Procedure Specimens Taken Check Surgery Details section.
--- OUTSIDE RECORDS SUMMARY | 2024-05-22 11:29 | XMS_ITS | Encounter Summary ---
Author Organization [facility] Address [address] [place] [address] Care Team Providers Care Rotary Drill Operator Name Role Phone Elsewhere, Pcp Primary Care Provider Unavailabl e Reason for Visit * Outpatient (Routine) - Closed Specialty Diagnoses / Procedures Referred By Angel t Referred To Contact Video Medicine Diagnoses Seizure (HCC) Silver Velazquez M.D. [address] [place] [phone] [facility] Referral ID Status Reason Start Date Expiration Date Visits Re quested Visits Authorized [id number] Closed 04/21/2024 10/21/2025 1 1 Encounter Details Date Type Department Care Team (Late st Contact Info) Description 04/27/2024 2:00 PM CDT Telemedicine Department of Neurology in [place], [place] [address] [place] [phone] Silver Velazquez M.D. [address] [place] [phone] Seizure (HCC) Social History Tobacco Use Types Packs/Day Years [...] How often do you attend chur or mandaeism services? Never 06/28/2022 Do you belong to any clubs o r organizations such as jew groups, unions, fraternal or athletic groups, or [...] and heating? Not hard at all 08/11/2023 [facility] of Occupat ional Health - Occupational Stress [...] your living situation today? I have a [facility] place to live 08/11/2023 Education Answer Date Recorded What is the highest level of school you have completed or the highest degree you have received? Doctorate 06/28/2022 Sex and Gender Information Value Date Recorded Sex Assigned at Female 06/28/2022 11:57 AM CDT Gender Identity Female 06/28/2022 11:57 AM CDT Sexual Orientation Straight 06/28/2022 11 :57 AM CDT documented as of this encounter Progress Notes * Silver Velazuqez M.D. - 04/27/2024 2:00 PM CDT Consult conducted via real-time audio/video technology by Silver Velazquez M.D. in [facility] to the patient in patient's home or location. This Video Visit was performed during the COVID-19 emergency, when many states had issued [id number] orders. Report: Dr. Manzano sent in a portal note on April 20 informing us that she again had focal seizure withimpairment of awareness. She had 2 events, probably about 2 weeks ago, 4-5 days apart. She has not had this type of seizure in more than a year. The first event occurred at night, because her husbandnoticed that she was behaving as if she was having a bad dream. They were visiting their son at that time. They went to the dining room and sat down. She was confused. She was not able to say why andwhere they were. Her took her from one part of the house to another, and she could not recognize who was sleeping in the room. She recovered within an hour. The second episode was less prominent. They just laid in bed for her to recover. There was no convulsive activity with either. In addition, she had indicated in her portal note of April 20, she has been having constant and more prominent unpleasant smell and taste. I also learned that she has been able to successfully take less lorazepam, 0.25 mg, but she found on at least 1 or 2 occasions when she felt anxious, the lorazepam did help her. I counseled her about the following: To try to increase the Depakote ER (250 mg per pill) to 1 pill in the morning with food, 1 pill in midday with food, and 2 pills with dinner. The reason is because in the past, she had experienced gastric irritation. She reduced the dose to just 3 pills per day. She is agreeable to doing this. If this does not help with gastric irritation, we will then prescribe the Depakote EC preparation, which is enteric coated, and the same as Depakote DR (delayed release), that is no longer available.. 2. Continue taking the same dose of levetiracetam XR (500 mg per pill) at 2 pills twice a day. In the past, we have shown that she already maximized the levetiracetam, with very good serum concentration. 3. I discouraged her from taking the lorazepam for anxious feeling. I encouraged her to have a formal consultation with a psychiatrist, to at evaluate for possible anxiety disorder. She very nicely had been able to reduce her lorazepam intake. We discussed the risk of taking lorazepam on a regular basis, which could lead to some degree of dependence and side effects such as sedation and unsteadiness. She is very receptive to my advice regarding this. With the increase in the Depakote ER, I think that there is a possibility that her persistent and more frequent unpleasant smell and taste may also improve. In the past, monitoring these symptoms with EEG did not show any accompanying electrographic seizure discharges. I personally spent a total 35 minutes in ccm-qyqj-do-face time performing a review of the record and/or discussion with the patient/caregiver as described above. documented in this encounter Plan of Treatment Upcoming Encounters Date Type Department Care Team (Latest Contact Info) Description 07/16/2024 9:00 AM CDT Clinical Communication Virtual Review in [address] [phone] 07/20/2024 11:00 AM CDT Office Visit Department of Neurology in [address] [phone] Silver Velazquez M.D. [address] [place] [phone] documented as of this encounter Visit Diagnoses Diagnosis Seizure (HCC) documented in this encounter Care Teams Rotary Drill Operator Relationship Specialty Start Date End Date Elsewhere, Pcp PCP - General Internal Medicine 08/07/22 documented as of this encounter
--- OUTSIDE RECORDS SUMMARY | 2024-05-22 11:29 | XMS_ITS | Encounter Summary ---
Author Organization [facility] Address [address] [place] [address] Care Team Providers Care Interior Paneler Name Role Phone Elsewhere, Pcp Primary Care Provider Unavailabl e Reason for Visit * Reason Comments Med Refill Encounter Details Date Type Department Care Team (Late st Contact Info) Description 05/03/2024 Refill Department of Neurology in [place], [place] [address] [place] [phone] Kevin Gould M.D. [address] [place] [phone] Med Refill Social History Tobacco Use Types [...] often do you attend chur ch or jewish services? Never 06/28/2022 Do you belong to any clubs o r organizations such as anglican groups, unions, fraternal or athletic groups, or [...] and heating? Not hard at all 08/11/2023 [facility] of Occupat ional Health - [...] AM CDT Clinical Communication Virtual Review in [place], [place] [address] [place] [address] 07/20/2024 11:00 AM CDT Office Visit Department of Neurology in [place], [place] [address] [place] [phone] Silver Velazquez M.D. [address] [place] [address] documented as of this encounter Visit Diagnoses Diagnosis Seizure (HCC) documented in this encounter Care Teams Interior Paneler Relationship Specialty Start Date End Date Elsewhere, Pcp PCP - General Internal Medicine 08/07/22 documented as of this encounter
--- NOTE | 2024-05-22 11:30 | CRLHL7_ITS ---
For Patients: As a result of the Century Cures Act, medical imaging exams and procedure reports are released immediately into your electronic medical record. You may view this report before your referring provider. If you have questions, please contact your health care provider. BILATERAL SCREENING MAMMOGRAM WITH COMPUTER-AIDED DETECTION AND TOMOSYNTHESIS TECHNIQUE: CC and MLO views were obtained. These mammographic images have been obtained using full-field digital technique. These mammographic images were interpreted with the benefit of computer-aided detection. Breast Tomosynthesis was used in this interpretation. COMPARISON FILM: 03/12/23, 03/09/22, 01/17/21. FINDINGS: There are scattered areas of fibroglandular density IMPRESSION: There is no radiographic evidence for malignancy. ASSESSMENT: BI-RADS Category 1: Negative RECOMMENDATION: Routine screening mammogram in 1 year. A lay language report of this examination will be provided to the patient. Kevin Meneses M.D. Diagnostic Radiologist [email or web address] CHAD/Dictated by: Kevin Meneses MD @ 05/22/2024 12:10:00 PM (Electronically Signed)
== END 2024-05-22 11:27 | disposition home or self-care (01) ==
LOC: MAMMO 11:27
PROVIDERS: PCP Family Medicine; Visit Provider Family Medicine
DX: Z12.31 Encounter for screening mammogram for malignant neoplasm of breast (principal)
CPT/HCPCS: 77063; 77067

== ENCOUNTER 2024-12-15 00:07 | Emergency (ER) | payer MEDICARE, BC, SELFPAY ==
[2024-12-15 00:09] VITALS: BP 131/46; PULSE 67; RESP 16; TEMP 36.7; O2SAT 100; BMI 29.5
--- OUTSIDE RECORDS SUMMARY | 2024-12-15 00:09 | XMS_ITS | Clinical Summary ---
Author Organization [facility] Address [address] [place] [address] Care Team Providers Care Bulk Tank Car Unloader Name Role Phone Elsewhere, Pcp Primary Care Provider Unavailabl e Source Comments Patient records contain information from all sites at [facility]. For routine questions regarding patient records, call [phone] during business hours, M-F 8:00 AM - 5:00 PM Central Time. Record requests for emergency care only can be directed to [phone] at any time.[facility] Allergies Active Allergy Reactions Criticality Noted Date Comments Amoxicillin Other (see comments) Low 10/15/2022 Amoxicillin-Pot Clavulanate Hives (Reselect Reaction) 09/15/2010 Clavulanic Acid Other (see comments) Low 10/15/2022 Rash, itching Lamotrigine Itching,Other (see comments),Rash Low 07/09/2022 Prednisone Rash Low 10/15/2022 Medications * This document contains information received from the source organization and may not represent a complete record from that organization. LORazepam (ATIVAN) 0.5 mg tabletIndication s:Seizure (HCC) Take 0.5 pill at 8:00 a.m. and 0.5 pill at 8:00 p.m. 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 Active divalproex (Depakote) 250 mg EC tablet Take two tablets in the morning, one in midday, one in the afternoon, and two at bedtime. Take the pills with food. 360 tablet 3 07/20/2024 Active Active Problems Patient Care Coordination No te Formatting of this note migh t be different from the original. 05/21/22 SVETLANA to family and friends signed for spouse Peter Manzano. Problem Noted Date Diagnosed Date Seizure 09/06/2023 Focal Complex Partial Epilep sy Not Intractable Without Status Epilepticus 08/22/2022 Abnormal Electroencephalogram Nonspecific 2021 Family History Medical History Relation Name Comments Other cancer Father Juno Almaguer from Esoph ageal cancer at 61 Transient ischemic attack Mother Gisel 90 yrs old Lymphoma Sister 1 Sonya Foster completed treat ment Diabetes Sister 2 Carly Gilman Type 1 since 35 yrs old Diabetes Son Chauncey Manzano Type 1 since 2 yrs old Relation Name Status Comments Father Juno Almaguer Mother Gisel Sister 1 Sonya Foster Sister 2 Carly Gilman Son Chauncey Manzano Social History Tobacco Use Types Packs/Day Years Used Date Smoking Tobacco: Never Passive Smoke Exposure: Never Smokeless Tobacco: Never Alcohol Use Standard [...] often do you attend chur ch or muslim services? Never 06/28/2022 Do you belong to [...] and heating? Not hard at all 08/11/2023 [facility] of Occupat ional Health - [...] living? No 08/11/2023 Nutrition Answer Date Recorded On average, how many serving s of fruits and vegetables do you eat per day (serving size is equal to 1 cup or approximately the size of a tennis ball)? 0-2 08/11/2023 Dental Answer Date Recorded Dental: Regular Dentist Yes 06/28/20 Employment Answer Date Recorded Employment status Retired 08/11/2023 Housing Stability Answer Date Recorded What is your living situation today? I have a [facility] place to live 08/11/2023 Education Answer Date Recorded What is the highest level of school you have completed or the highest degree you have received? Doctorate 06/28/2022 Comments No Sex and Gender Information Value Date Recorded Sex Assigned at Female 06/28/2022 11:57 AM CDT Legal Sex Female 10:16 AM TREATMENT SPECIALIST Gender Identity Female 06/28/2022 11:57 AM CDT Sexual Orientation Straight 06/28/2022 11 :57 AM CDT Last Filed Vital Signs Vital Sign Reading Time Taken Comments Blood Pressure 104/47 09/06/2023 8:12 AM TREATMENT SPECIALIST Pulse 58 09/06/2023 8:12 AM TREATMENT SPECIALIST Temperature 36.5 C (97.7 F) 09/06/2023 8:12 AM TREATMENT SPECIALIST Respiratory Rate 10 09/06/2023 8:12 AM TREATMENT SPECIALIST Oxygen Saturation 94% 09/06/2023 8:12 AM TREATMENT SPECIALIST Inhaled Oxygen Concentration - - Weight 82.9 kg (182 lb 12.2 oz) 024 11:01 AM CDT Height 169 cm (5' 6.54) 07/20/2024 11: 01 AM CDT Body Mass Index 29.03 07/20/2024 11:01 AM CDT Plan of Treatment Health Maintenance Due Date Last Done Comments Hepatitis B Screening 1950 Hepatitis C Screening 1950 RSV vaccine - (32-36 weeks) or 60+ years (1 - 1-dose 75+ series) 2023 Depression Screening (Annual PHQ-2) 09/30/2024 Fall Risk Screen (Annual) 09/30/2024 COVID-19 Vaccine ( season) 2024 06/24/2024, 07/04/2023, 06/12/2022, Additional history exists DTaP,Tdap,and Td Vaccines (3 - Td or Tdap) 03/02/2032 03/02/2022, 03/28/2011 Pneumococcal vaccine (50+ years) Completed 07/06/2015, 04/21/2014 Zoster Vaccines Completed 04/09/2019, 12/12/2018 Influenza Vaccine Completed 06/24/2024, , 06/12/2022, Additional history exists IPV Vaccines Aged Out No longer eligi ble based on patient's age to complete this topic Insurance [facility] MEDICARE Advance Directives For more information, please contact: [phone] * Full Code (Latest Code Status on File) Date Activated Date Inactivated Comments 08/22/2022 9:31 AM 08/25/2022 2:14 PM Question Answer Comments Full Code: Discussed Care Teams Bulk Tank Car Unloader Relationship Specialty Start Date End Date Elsewhere, Pcp PCP - General Internal Medicine 08/07/22
--- OUTSIDE RECORDS SUMMARY | 2024-12-15 00:09 | XMS_ITS | Clinical Summary ---
Author Organization [facility] Address [address] [place] [id number] Care Team Providers Care Employment Coordinator Name Role Phone Rosie Young MD Primary Care Provider + Allergies Active Allergy Reactions Criticality Noted Date Comments Amoxicillin-Pot Clavulanate 09/15/20 10 Medications omeprazole (PRILOSEC) 10 mg capsule Take 1 capsule by mouth once daily before a meal. 0 10/12/2010 Active aspirin 81 mg capIndications:D ysphagia, unspecified type Take by mouth. 0 07/13/2021 Active levETIRAcetam (Keppra) 1,000 mg tabletIndication s:Dysphagia, unspecified type 1500 mg by mouth daily 0 07/13/2021 Active ibuprofen-diphen hydrAMINE 200-25 mg capIndications:D ysphagia, unspecified type Takes 1 tab by mouth at night 0 07/13/2021 Active LORazepam (ATIVAN) 1 mg tabletIndication s:Dysphagia, unspecified type 0.5-1 mg PO UD PRN [...] and Fami ly Not on file 04/23/2024 Comments Unknown Sex and Gender Information Value Date Recorded Sex Assigned at Not on file Legal Sex Female 7:41 AM CLINICAL TRIAL SPECIALIST Gender Identity Not on file Sexual Orientation Not on file Obstetrics History Last Filed Vital Signs Vital Sign Reading Time Taken Comments Blood Pressure 118/71 11/17/2010 8:51 AM CLINICAL TRIAL SPECIALIST Pulse 73 11/17/2010 8:51 AM CLINICAL TRIAL SPECIALIST Temperature 36.5 C (97.7 F) 09/15/2010 9:04 AM CLINICAL TRIAL SPECIALIST Respiratory Rate - - Oxygen Saturation - - Inhaled Oxygen Concentration - - Weight 99.3 kg (219 lb) 11/17/2010 8:51 AM CLINICAL TRIAL SPECIALIST Height - - Body Mass Index - - Plan of Treatment Health Maintenance Due Date Last Done Comments Tdap 1959 Depression screening for age 12+ 1960 BMI (ht and wt on same day) for age 18+ 1966 Hepatitis C screening for ag e 18-79 1966 Pneumococcal series for age 50+ (1 of 2 - PCV) 1967 Tetanus booster 1968 Zoster (shingles) series for age 50+ (1 of 2) 1998 DEXA/DXA scan for age 65+ 2013 Medicare Wellness for age 65+ 2013 RSV vaccine for adults or (1 - 1-dose 75+ series) 2023 COVID-19 vaccine series (2023- season) 2024 07/04/2023, 06/12/2022, 01/29/2022, Additional history exists Influenza Vaccine (#1) 2024 Insurance [employer] [place] [employer] [place] ONLY Care Teams Employment Coordinator Relationship Specialty Start Date End Date Rosie Young MD [address] [place] [address] PCP - General Family Practice 11/08/22
[2024-12-15] MEDS: LORazepam 0.5 MG TABLET PO (00:49)
--- OUTSIDE RECORDS SUMMARY | 2024-12-15 00:53 | XMS_ITS | Clinical Summary ---
Author Organization [facility] Address [address] [place] [id number] Care Team Providers Care Car Designer Name Role Phone Rosie Young MD Primary [...] on file Legal Sex Female 7:41 AM TACKING MACHINE OPERATOR Gender Identity Not on file Sexual Orientation Not on file Obstetrics History Last Filed Vital Signs Vital Sign Reading Time Taken Comments Blood Pressure 118/71 11/17/2010 8:51 AM TACKING MACHINE OPERATOR Pulse 73 11/17/2010 8:51 AM TACKING MACHINE OPERATOR Temperature 36.5 C (97.7 F) 09/15/2010 9:04 AM TACKING MACHINE OPERATOR Respiratory Rate - - Oxygen Saturation - - Inhaled Oxygen Concentration - - Weight 99.3 kg (219 lb) 11/17/2010 8:51 AM TACKING MACHINE OPERATOR Height - - Body Mass Index - [...] Influenza Vaccine (#1) 2024 Insurance [employer] [place] ONLY Care Teams Car Designer Relationship Specialty Start Date End Date Rosie Young MD [address] [place] [address] PCP - General Family Practice 11/08/22
--- OUTSIDE RECORDS SUMMARY | 2024-12-15 00:53 | XMS_ITS | Clinical Summary ---
Author Organization [facility] Address [address] [place] [id number] Care Team Providers Care Configuration Management Manager Name Role Phone Elsewhere, Pcp Primary Care Provider Unavailabl e Source Comments Patient records contain information from all sites at [facility]. For routine questions regarding patient records, call [phone] during business hours, M-F 8:00 AM - 5:00 PM Central Time. Record requests for emergency care only can be directed to [phone] at any time.[facility] [...] NIGHT 360 tablet 3 04/17/2024 Active vitamins A,C,W-abiu-yzqle r (PreserVision AREDS) 7,160 Units-113 mg-100 Units [...] often do you attend chur ch or druze services? Never 06/28/2022 Do you belong to any clubs o r organizations such as shinto groups, unions, fraternal or athletic groups, or [...] and heating? Not hard at all 08/11/2023 [facility] - Occupational [...] your living situation today? I have a [facility] place to live 08/11/2023 Education Answer Date Recorded What is the highest level of school you have completed or the highest degree you have received? Doctorate 06/28/2022 Comments No Sex and Gender Information Value Date Recorded Sex Assigned at Female 06/28/2022 11:57 AM CDT Legal Sex Female 10:16 AM COMMERCIAL INTELLIGENCE MANAGER Gender Identity Female 06/28/2022 11:57 AM CDT Sexual Orientation Straight 06/28/2022 11 :57 AM CDT Last Filed Vital Signs Vital Sign Reading Time Taken Comments Blood Pressure 104/47 09/06/2023 8:12 AM COMMERCIAL INTELLIGENCE MANAGER Pulse 58 09/06/2023 8:12 AM COMMERCIAL INTELLIGENCE MANAGER Temperature 36.5 C (97.7 F) 09/06/2023 8:12 AM COMMERCIAL INTELLIGENCE MANAGER Respiratory Rate 10 09/06/2023 8:12 AM COMMERCIAL INTELLIGENCE MANAGER Oxygen Saturation 94% 09/06/2023 8:12 AM COMMERCIAL INTELLIGENCE MANAGER Inhaled Oxygen Concentration - - Weight 82.9 kg (182 lb 12.2 oz) 024 11:01 AM CDT Height 169 cm (5' 6.54) 07/20/2024 11: 01 AM CDT Body Mass Index 29.03 07/20/2024 11:01 AM CDT Plan of Treatment Health Maintenance Due Date Last Done Comments Hepatitis C Screening 1950 RSV vaccine - [...] patient's age to complete this topic Insurance [facility] Advance Directives For more information, please contact: [phone] * Full Code (Latest Code Status on File) Date Activated Date Inactivated Comments 08/22/2022 9:31 AM 08/25/2022 2:14 PM Question Answer Comments Full Code: Discussed Care Teams Configuration Management Manager Relationship Specialty Start Date End Date Elsewhere, Pcp PCP - General Internal Medicine 08/07/22
--- NOTE | 2024-12-15 05:03 | ED_ITS ---
HPI - General Adult General Chief complaint: Unspecified Complaint, Adult Stated complaint: Likely seizure Time Seen by Provider: 12/15/24 00:09 Source: patient and family Mode of arrival: ambulatory Limitations: no limitations History of Present Illness HPI narrative: 74-year-old female presents the emergency department with her for feelings that she could be her perhaps having a persistent temporal lobe seizure. She was a long-standing history of temporal lobe seizures that typically involve hypersensitivity to smells, dizziness and feeling of impending doom with anxiety. She does not like me using the word anxiety to describe this feeling of impending doom. She is on seizure control medications and has had no recent adjustments to this. She follows regularly with her neurology team at [facility]. I do not have access to those records but she says she can pull them up on her phone if needed but she gets distracted from actually doing so during our conversation. She reports that tonight she felt a little off when she was playing cards with her and then she bent forward to grab something off of the dog's bed about 2 hours prior to arrival and felt of vertigo sensation. There were no other focal neurological changes. She felt off balance as she went to bed and the feeling of impending doom came with the vertigo. Symptoms are better with rest. She reports that she has no vision changes but it is difficult to focus on details when the room is spinning. Symptoms have overall improved significantly after she took a 0.5 mg of lorazepam but is still worried that symptoms will come back. Her temporal lobe seizures have never degraded into tonic clonic seizures. There was no loss of consciousness, no stroke-like symptoms, no headache, no fall or injury. She is specifically worried that things will start happening more often and she may need adjustment of her long- term medications. Mind you it is the wee hours right now. No cardiac symptoms, no fever. Vertigo has improved as well. Past medical history is notable for temporal lobe seizures, anxiety, GERD. Prior notes reviewed. Has had prior head imaging as well. No recent changes in medications. ROS is notable for the generalized and neurological changes as above, otherwise denies times 12 systems. Related Data Home Medications ?Medication ?Instructions ?Recorded ?Confirmed divalproex 250 mg tablet,extended 250 mg PO TID 05/10/23 12/15/24 release 24 hr levetiracetam 500 mg 1,000 mg PO BID 05/10/23 12/15/24 tablet,extended release 24 hr lorazepam 1 mg tablet 0.25 mg PO BID PRN 05/10/23 12/15/24 Allergies Allergy/AdvReac Type Severity Reaction Status Date / Time amoxicillin (From Augmentin) Allergy Mild Unknown Verified 12/15/24 00:16 clavulanic acid (From Allergy Mild Unknown Verified 12/15/24 00:16 Augmentin) lamotrigine Allergy Mild Rash Verified 12/15/24 00:16 prednisone Allergy Mild Rash Verified 12/15/24 00:16 [facility] Medical History Health care directive on file ?Z78.9 - Other specified health status (ICD-10) Dysphagia (~05/2023) ?R13.10 - Dysphagia, unspecified (ICD-10) Vasomotor rhinitis (04/07/13) ?J30.0 - Vasomotor rhinitis (ICD-10) Polyp of colon ?K63.5 - Polyp of colon (ICD-10) Gastroesophageal reflux disease (03/24/10) ?K21.9 - Gastro-esophageal reflux disease without esophagitis (ICD-10) Focal seizure (2018) ?R56.9 - Unspecified convulsions (ICD-10) Chronic gastritis ?K29.50 - Unspecified chronic gastritis without bleeding (ICD-10) Night terrors, adult ?F51.4 - Sleep terrors [night terrors] (ICD-10) Olfactory hallucinations ?R44.2 - Other hallucinations (ICD-10) Surgical History History of esophageal reflux testing with pH monitoring (07/2023) ?Z92.89 - Personal history of other medical treatment (ICD-10) Normal esophagogastroduodenoscopy (EGD) (08/2023) ?Z01.89 - Encounter for other specified special examinations (ICD-10) H/O hand surgery (~2014) ?Z98.890 - Other specified postprocedural states (ICD-10) History of hysterectomy (1980) ?Z90.710 - Acquired absence of both cervix and uterus (ICD-10) History of colonoscopy (2018) ?Z98.890 - Other specified postprocedural states (ICD-10) History of cholecystectomy (2000) ?Z90.49 - Acquired absence of other specified parts of digestive tract (ICD- 10) Family History Mother Stroke, Onset Age: 90 Son Diabetes Father Colon cancer, Onset Age: 62 Social History Narrative: , 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[place], Non-smoker Exercise 4-5 / week , walking, biking, 45 min does not drink alcohol Smoking Status: Never smoker Do you use any of these nicotine containing products: None Second hand tobacco smoke exposure: No How often do you have a drink containing alcohol: never AUDIT-C Alcohol total score: 0 Non-prescribed substance use: denies use service: No Exam Const: Vital Signs, click to edit/add: Vital Signs - 24 hr 12/15/24 00:09 Temperature 98.0 F Pulse Rate [Pulse Oximeter] 67 Respiratory Rate 16 Blood Pressure [Ri ght Upper Arm] 131/46 L Pulse Oximetry 100 Oxygen Delivery Me thod Room Air Documenting provider has reviewed patient's vital signs: yes Common normals: alert General appearance: well kempt Other: Anxious and seems to be developing some mild memory impairment. She does not completely finish her thoughts and has to go through sequence very particularly or seems to forget details and has difficulty exactly answering my question rather than just simply her replaying her memory of events. Her seems to have good insight into this disconnect as well. He is very astute and answering questions. She is anxious, tearful at times and difficult to redirect but is not exhibiting any focal neurological changes. HENMT: Common normals: normocephalic, moist oral mucous membranes and oropharynx normal Head and scalp: normocephalic Face and sinus: normal facial exam Mouth: oral and palatal mucosa normal Eye: Common normals: PERRL, EOMs intact bilaterally and conjunctivae normal General eye: normal appearance of both eyes Conjunctiva: conjunctiva(e) normal Pupil: PERRL Neck & C-Spine: Common normals: full ROM and no lymphadenopathy General: normal visual inspection Resp: Common normals: normal respiratory effort, no use of accessory muscles a nd clear to auscultation bilaterally Effort & inspection: able to speak in complete sentences Auscultation: clear to auscultation bilaterally Cardio: Common normals: regular rate, regular rhythm, S1 normal heart sound, S2 normal heart sound and no murmurs Rate: regular rate Rhythm: regular rhythm Heart sounds: S1 normal and S2 normal GI: Common normals: Normal to inspection, nondistended, normoactive bowel sounds present, soft to palpation, non-tender and no hepatosplenomegaly Palpation: soft and no hepatosplenomegaly Extremity: Common normals: normal to inspection General: normal exam except as noted Neuro: Common normals: CN's II-XII intact bilaterally, moves all extremities, no focal motor deficits and gait normal Sensorium/orientation: alert Coordination/balance: Normal rapid alternating movements of the distal upper extremity present (Neuro) and Normal rapid alternating movements of the distal lower extremity present (Neuro) Speech: speech normal Motor exam: strength 5/5 throughout, no pronator drift and no tremor noted Coordination: rapid alternating movement UE normal and rapid alternating movement LE normal Psych: Common normals: speech normal Appearance: well kempt Activity/motor behavior: restless Speech: normal speech Mood and affect: anxious Insight: fair Judgement: fair Skin: Common normals: no rashes or lesions noted General skin exam: no rashes or lesions noted Course Course ED Course: 74-year-old female with episode of vertigo that his improved quite a bit after lorazepam and history of temporal lobe seizures with no evidence of tonic-clonic seizure, persistent seizure of any kind, stroke-like symptoms, meningitis or other neurological emergency. Patient family counseled. I do question if she is starting to have some memory impairment that may be exacerbating her anxiety regarding these spells. It seems as though this temporal lobe event is fairly characteristic for her. This also could separately be an episode of benign positional vertigo but since there are no features to suggest cerebellar stroke or other neurological emergency, I do not recommend further workup. Rationale was discussed in family is in agreement. Recommended 0.5 mg of oral Ativan and conservative management. Keep a symptom diary to update her neurology team. If she has persistent events, considerations of change of her baseline medication should be made. Alarm symptoms reviewed that would warrant coming to emergency department for this. Written instructions provided. All questions answered. Family in agreement with plan of care. Vital Signs Vital signs: Initial Vital Signs Temperature 98.0 F 12/15/24 00:09 Temperature Source Oral 12/15/24 00:09 Pulse Rate 67 12/15/24 00:09 Respiratory Rate 16 12/15/24 00:09 Blood Pressure 131/46 L 12/15/24 00:09 Blood Pressure Mean 74 12/15/24 00:09 Pulse Oximetry 100 12/15/24 00:09 Oxygen Delivery Method Room Air 12/15/24 00:09 Vital Signs Temperature 98.0 F 12/15/24 00:09 Pulse Rate 67 12/15/24 00:09 Respiratory Rate 16 12/15/24 00:09 Blood Pressure 131/46 L 12/15/24 00:09 Pulse Oximetry 100 12/15/24 00:09 Oxygen Delivery Method Room Air 12/15/24 00:09 Temperature 98.0 F 12/15/24 00:09 Pulse Rate 67 12/15/24 00:09 Respiratory Rate 16 12/15/24 00:09 Blood Pressure 131/46 L 12/15/24 00:09 Pulse Oximetry 100 12/15/24 00:09 Oxygen Delivery Method Room Air 12/15/24 00:09 Medications Administered Medications: Discontinued Medications Generic Name Dose Route Start Last Admin Trade Name Freq PRN Reason Stop Dose Admin Lorazepam 0.5 mg 12/15/24 00:46 12/15/24 00:49 Lorazepam 0.5 Mg Tablet PO 12/15/24 00:47 0.5 mg ONCE ONE Administration Discharge Plan Discharge Clinical Impression: Vertigo, Temporal lobe seizure Patient Disposition: Home w/ Parent or Adult Condition: Stable Instructions: Temporal Lobe Seizures (ED) Additional Instructions: As we discussed, your symptoms tonight are consistent with a variant of temporal lobe seizure. Unfortunately, has a brain continues to price changer time, seizure disorders can evolve and change as well. I do not think that this warrants a change in your baseline seizure medication at this time but does warrant keeping track of these episodes with a symptom diary so that you can report back to your neurologist. Vertigo symptoms tend to have feeling of off balance, room spinning, dizziness, sensation of impending doom. He can also be accompanied by nausea and vision changes. Lying flat, drinking lots of water and taking your lorazepam should shorten the duration of symptoms but it can last for up to a few days. There were no signs of stroke on your exam today and I do not recommend further brain imaging today. Vertigo symptoms tend to be harder to treat to than the rest of the temporal lobe seizure symptoms. It is okay for you to take a 2nd 0.5 mg lorazepam if your symptoms do not improve after the 1st dose within about 90 minutes or so. You may continue taking 0.5 mg every 8 hours after that if you have persistent symptoms. Thankfully, temporal lobe seizures do not evolve into tonic clonic seizures typically. If there was loss of consciousness, focal neurological changes consistent with stroke or other worsening, you should come to an emergency department. No driving until all vertigo symptoms have resolved. Activity Level: Activity as Tolerated Discharge Diet: Regular Prescriptions: No Action lorazepam 1 mg tablet 0.25 mg PO BID PRN divalproex 250 mg tablet extended release 24 hr 250 mg PO TID levetiracetam 500 mg tablet extended release 24 hr 1,000 mg PO BID Patient Comments: TAKE 4 TABLETS BY MOUTH DAILY Follow Up/Referrals: Rosie Young MD [Primary Care Provider] - Stand Alone Forms: [employer] Info Instructions
== END 2024-12-15 01:03 | disposition home or self-care (01) ==
LOC: ED 00:51
PROVIDERS: Emergency Provider Family Medicine; PCP Family Medicine
DX: G40.109 Localization-related (focal) (partial) symptomatic epilepsy and epileptic syndromes with simple partial seizures, not intractable, without status epilepticus (principal); R42 Dizziness and giddiness
CPT/HCPCS: 99283; A9270